=== PATIENT | female | born 1955 | race African-American/Black ===

== ENCOUNTER 2016-04-08 16:44 | Observation (INO) | payer OTHER ==
[2016-04-08 16:53] VITALS: BMI 30.9
[2016-04-08] MEDS ORDERED: SODIUM CHLORIDE 1,000 ML IV STA (17:54)
[2016-04-08] MEDS ORDERED: ASPIRIN 81 MG CHEWABLE TABLETS PO ONE (17:54)
[2016-04-08] MEDS ORDERED: ASPIRIN 81 MG CHEWABLE TABLETS ONE (18:01)
[2016-04-08 18:21] LABS: BASOPHIL 0.6 % (0-2.0); MCH 27.6 pg (25.7-33.7); MCHC 32.5 g/dl (32.0-36.0); MEAN CELL VOLUME 84.9 fl (80-96); MEAN PLT VOLUME 9.8 fl (7.5-11.1); NEUTROPHILS 55.6 % (42.8-82.8); PLATELET COUNT 266 K/MM3 (134-434); RDW 13.8 % (11.6-15.6); WHITE BLOOD COUNT 5.7 K/mm3 (4.0-10.0)
--- NOTE | 2016-04-08 18:31 | PDOC ---
History of Present Illness - General History Source: Patient Exam Limitations: No Limitations - History of Present Illness Initial Comments: 04/08/16 18:40 The patient is a 60 year old female, with a significant past medical history of HTN, diabetes, CAD s/p stent and s/p ND (3 years ago; [facility]), who presents to the emergency department with intermittent chest pain for the past several months but worsening in the past 2 days. The patient describes her chest pain as chest tightness with exertion. The patient presents to the ED for evaluation because she state that her symptoms now feel similar to her ND approximately 3 years ago. The patient denies fever, chills, cough, diaphoresis, SOB, nausea or vomiting. The patient reports that she had an echo done in May 2015: Echo Report: Ejection fraction of 60%. Soft echodensity w/ noncoronary artery cusps of the aortic valve ?artifact vs vegetation w/o aortic regurgitation. Allergies: Dextromethorphan HBr, Guaifenesin Past Surgical History: Stent, Ectopic, Right Wrist, Neck Social History: Former smoker. Denies alcohol or drug use. PCP: Dr. Carvajal Shoe Planner: Dr. [place] <Swati Rich - Last Filed: 04/08/16 18:56> - General History Source: Patient Exam Limitations: No Limitations <John Love - Last Filed: 04/08/16 19:18> - General Chief Complaint: Chest Pain Stated Complaint: CHEST PAIN Time Seen by Provider: 04/08/16 17:45 Past History <Swati Rich - Last Filed: 04/08/16 18:56> - Past Medical History Cardiac Disorders: Yes (cad) Diabetes: Yes HTN: Yes - Surgical History Abdominal Surgery: Yes (ECTOPIC) Cardiac Surgery: Yes (stent) Orthopedic Surgery: Yes (R. wrist & neck) - Immunization History Immunization Up to Date: Yes - Psycho/Social/Smoking Cessation Hx Anxiety: No Suicidal Ideation: No Smoking Status: Yes Smoking History: Former smoker Have you smoked in the past 12 months: Yes Number of Cigarettes Smoked Daily: 15 Cigars Per Day: 0 Information on smoking cessation initiated: Yes 'Breaking Loose' booklet given: 04/08/16 Hx Alcohol Use: No Drug/Substance Use Hx: No Substance Use Type: None Hx Substance Use Treatment: No <John Love - Last Filed: 04/08/16 19:18> - Past Medical History Allergies/Adverse Reactions: Allergies Allergy/AdvReac Type Severity Reaction Status Date / Time dextromethorphan HBr Allergy Intermediate Hives Verified 04/08/16 16:49 [From Robitussin-DM] guaifenesin Allergy Intermediate Hives Verified 04/08/16 16:49 [From Robitussin-DM] Home Medications: Ambulatory Orders Aspirin [Aspirin EC] 81 mg PO DAILY 04/08/16 Clopidogrel Bisulfate [Clopidogrel] 75 mg PO DAILY 04/08/16 Glyburide [Diabeta -] 5 mg PO BID 04/08/16 Labetalol HCl [Normodyne -] 200 mg PO BID 04/08/16 Levothyroxine [Synthroid -] 25 mcg PO DAILY 04/08/16 Metformin HCl [Glucophage] 1,000 mg PO BID 04/08/16 Nifedipine ER [Procardia Xl -] 90 mg PO DAILY 04/08/16 Pramipexole Dihydrochloride [Mirapex -] 0.5 mg PO BID 04/08/16 Pravastatin Sodium 10 mg PO DAILY 04/08/16 Review of Systems - Review of Systems Able to Perform ROS?: Yes Comments:: 04/08/16 18:39 GENERAL/CONSTITUTIONAL: No fever or chills. No weakness. HEAD, EYES, EARS, NOSE AND THROAT: No change in vision. No ear pain or discharge. No sore throat. CARDIOVASCULAR: +Chest pain. No shortness of breath. RESPIRATORY: No cough, wheezing, or hemoptysis. GASTROINTESTINAL: No nausea, vomiting, diarrhea or constipation. GENITOURINARY: No dysuria, frequency, or change in urination. MUSCULOSKELETAL: No joint or muscle swelling or pain. No neck or back pain. SKIN: No rash. NEUROLOGIC: No headache, vertigo, loss of consciousness, or change in strength/ sensation. ENDOCRINE: No increased thirst. No abnormal weight change. HEMATOLOGIC/LYMPHATIC: No anemia, easy bleeding, or history of blood clots. ALLERGIC/IMMUNOLOGIC: No hives or skin allergy. <Swati Rich - Last Filed: 04/08/16 18:56> *Physical Exam - Vital Signs Last Vital Signs Temp Pulse Resp BP Pulse Ox 98.4 F 86 18 159/80 100 04/08/16 16:50 04/08/16 16:50 04/08/16 16:50 04/08/16 16:50 04/08/16 16:50 - Physical Exam Comments: 04/08/16 18:32 GENERAL: Awake, alert, and fully oriented, in no acute distress. HEAD: No signs of trauma. EYES: PERRLA, EOMI, sclera anicteric, conjunctiva clear. ENT: Auricles normal inspection, hearing grossly normal, nares patent, oropharynx clear without exudates. Moist mucosa. NECK: Normal ROM, supple, no lymphadenopathy, JVD, or masses. LUNGS: Breath sounds equal, clear to auscultation bilaterally. No wheezes, and no crackles. HEART: Regular rate and rhythm, normal S1 and S2, no murmurs, rubs or gallops. ABDOMEN: Soft, nontender, normoactive bowel sounds. No guarding, no rebound. No masses. EXTREMITIES: Normal range of motion, no edema. No clubbing or cyanosis. No cords , erythema, or tenderness. NEUROLOGICAL: Cranial nerves II through XII grossly intact. Normal speech, normal gait. SKIN: Warm, dry, normal turgor, no rashes or lesions noted. <Swati Rich - Last Filed: 04/08/16 18:56> - Vital Signs Last Vital Signs Temp Pulse Resp BP Pulse Ox 98.4 F 86 18 159/80 100 04/08/16 16:50 04/08/16 16:50 04/08/16 16:50 04/08/16 16:50 04/08/16 16:50 <John Love - Last Filed: 04/08/16 19:18> Heart Score/ECG Review - History History: Moderately suspicious - Electrocardiogram EKG: Non specific repolarization disturbance - Age Age: 45-65 - Risk Factors Based on the list above the patient has:: >/=3 risk factors or Hx atherosclerotic disease - Troponin Troponin: </= normal limit - Score Heart Score - Total: 5 #1 ECG reviewed & interpreted by me at: 17:15 04/08/16 18:18 NSR 81, TWI I, avL, TWI V5-V6, no std/bryan, QTC 429 msec <John Love - Last Filed: 04/08/16 19:18> ED Treatment Course - LABORATORY CBC & Chemistry Diagram: 04/08/16 18:05 04/08/16 18:05 - Medications Given in the ED: ED Medications Discontinued Medications Generic Name Dose Route Start Last Admin Trade Name Lucía PRN Reason Stop Dose Admin Aspirin 324 mg 04/08/16 17:54 04/08/16 18:05 Asa - PO 04/08/16 17:55 324 mg ONCE ONE Administration <Swati Rich - Last Filed: 04/08/16 18:56> - LABORATORY CBC & Chemistry Diagram: 04/08/16 18:05 04/08/16 18:05 - RADIOLOGY Radiology Studies Ordered: Category Date Time Status CHEST PA & LAT [RAD] Stat Radiology 04/08/16 17:54 Ordered <John Love - Last Filed: 04/08/16 19:18> Medical Decision Making - Medical Decision Making 04/08/16 18:18 A portion of this note was documented by scribe services under my direction. I have reviewed the details of the note, within reason, and agree with the documentation with the following case summary and management plan written by me. Patient treated in the ED. Nursing notes are reviewed and incorporated into the medical decision-making. Vital signs reviewed. Peripheral IV access obtained by the nurse, laboratory studies are drawn and sent, reviewed and interpreted by myself. Vital Signs Temp Pulse Resp BP Pulse Ox 98.4 F 86 18 159/80 100 04/08/16 16:50 04/08/16 16:50 04/08/16 16:50 04/08/16 16:50 04/08/16 16:50 60-year-old female with past medical history of hypertension, diabetes, coronary disease status post stent, status post ND 3 years ago where she was worked up at [facility] presents to the emergency department for chest pain. The patient has had intermittent chest tightness on exertion for the last several months, however, the patient was noted to have worsening chest tightness with exertion with the last 2 days. She denies shortness of breath, diaphoresis or vomiting. Patient does note that the symptoms were similar to the last time she had an ND. Denies recent illnesses, fevers, chills, cough, vomiting. The last time the patient had a echo was in May 2015. Findings were noted as above in my notes. The patient will need to rule out myocardial infarction workup. We'll obtain and chest x-ray, labs. The patient's T wave inversions in the lateral leads are stable compared to prior. But given the symptoms, the patient should be admitted to the hospital for further workup. Aspirin was ordered. 04/08/16 19:16 CBC, BMP 04/08/16 18:05 04/08/16 18:05 CMP Sodium 143 mmol/L (136-145) 04/08/16 18:05 Potassium 3.4 mmol/L (3.5-5.1) L 04/08/16 18:05 Chloride 107 mmol/L (98-107) 04/08/16 18:05 Carbon Dioxide 28 mmol/L (21-32) 04/08/16 18:05 Anion Gap 8 (8-16) 04/08/16 18:05 BUN 21 mg/dL (7-18) H 04/08/16 18:05 Creatinine 1.4 mg/dL (0.55-1.02) H 04/08/16 18:05 Creat Clearance w eGFR 38.49 (>60) 04/08/16 18:05 Random Glucose 147 mg/dL (74-106) H D 04/08/16 18:05 Calcium 10.0 mg/dL (8.5-10.1) 04/08/16 18:05 Total Bilirubin 0.4 mg/dL (0.2-1.0) D 04/08/16 18:05 AST 27 U/L (15-37) 04/08/16 18:05 ALT 39 U/L (12-78) D 04/08/16 18:05 Alkaline Phosphatase 88 U/L (45-117) 04/08/16 18:05 Creatine Kinase 188 IU/L (26-192) D 04/08/16 18:05 Troponin I < 0.02 ng/ml (0.00-0.05) 04/08/16 18:05 Total Protein 7.2 g/dl (6.4-8.2) 04/08/16 18:05 Albumin 3.8 g/dl (3.4-5.0) 04/08/16 18:[address] Kenyon. She accepts the patient to telemetry observation. Case discussed in detail with admitting physician including history, physical exam and ancillary studies. Admitting physician has assumed care for the patient, will follow all pending diagnostics and will complete the evaluation and treatment. <John Love - Last Filed: 04/08/16 19:18> *DC/Admit/Observation/Transfer - Attestations Scribe Attestion: 04/08/16 18:32 Documentation prepared by Swati Rich, acting as medical education manager for John Love MD. <Swati Rich - Last Filed: 04/08/16 18:56> - Discharge Dispostion Admit: Yes <John Love - Last Filed: 04/08/16 19:18> Diagnosis at time of Disposition: Chest pain Qualifiers: Chest pain type: unspecified Qualified Code(s): R07.9 - Chest pain, unspecified - Discharge Dispostion Condition at time of disposition: Stable - Referrals Referrals: Arianna Carvajal MD [Primary Care Provider] -
[2016-04-08 18:43] LABS: INR 1.06 (0.82-1.09); PROTHROMBIN TIME (PATIENT) 11.7 SEC (9.98-11.88)
[2016-04-08 18:46] LABS: ACTIVATED PTT 34.4 SECONDS (26.9-34.4)
[2016-04-08 18:48] LABS: ALBUMIN 3.8 g/dl (3.4-5.0); ANION GAP 8 (8-16); CO2 28 mmol/L (21-32); CREATININE 1.4 mg/dL (0.55-1.02); GLUCOSE,RANDOM 147 mg/dL (74-106); SGOT/AST 27 U/L (15-37); SGPT/ALT 39 U/L (12-78)
[2016-04-08 18:51] LABS: ALK PHOS 88 U/L (45-117); BILIRUBIN,TOTAL 0.4 mg/dL (0.2-1.0); TOT PROT 7.2 g/dl (6.4-8.2); TROPONIN I < 0.02 ng/ml (0.00-0.05)
--- NOTE | 2016-04-08 19:12 | PN ---
<Laura Yuen - Last Filed: 04/08/16 20:39> Teaching Attending Note ATTENDING PHYSICIAN STATEMENT I saw and evaluated the patient. I reviewed the resident's note and discussed the case with the resident. I agree with the resident's findings and plan as documented. SUBJECTIVE: Patient is a 60 year old F with a PMHx of HTN, DM, CAD s/p MS with stent placement 3 years ago who presents with chest pain. She describes the pain as nonradiating and localized to the left side. Patient reports when she is aggravated by her significant other, she gets pain and tightness in her chest. She notes today the pain worsened from arguing with her significant other. At time of evaluation, she reports having no symptoms. She also notes associated SOB when her chest pain occurs. Patient reports that the tightness and SOB are similar to her MS symptoms from 3 years prior. Denies fevers, chills, diaphoresis, abdominal pain, nausea, vomiting, diarrhea. Social Hx: Smoker ( 15 cigarettes per day) OBJECTIVE: Last Vital Signs Temp Pulse Resp BP Pulse Ox 98.4 F 86 18 159/80 100 04/08/16 16:50 04/08/16 16:50 04/08/16 16:50 04/08/16 16:50 04/08/16 16:50 GENERAL: Well nourished female resting in bed. Awake, alert, and fully oriented , in no acute distress HEENT: Atraumatic. PERRLA, EOMI. Moist mucosa. No JVD LUNGS: No distress, speaks full sentences, clear to auscultation bilaterally HEART: Regular rate and rhythm, normal S1 and S2, no murmurs, rubs or gallops, peripheral pulses normal and equal bilaterally. ABDOMEN: Soft, nontender, normoactive bowel sounds. No guarding, no rebound. No masses EXTREMITIES: Normal inspection, Normal range of motion, no edema. No clubbing or cyanosis. NEUROLOGICAL: Cranial nerves II through XII grossly intact. Normal speech, normal gait, no focal sensorimotor deficits SKIN: Warm, Dry, normal turgor, no rashes or lesions noted. CBCD WBC 5.7 K/mm3 (4.0-10.0) 04/08/16 18:05 RBC 4.70 M/mm3 (3.60-5.2) 04/08/16 18:05 Hgb 13.0 GM/dL (10.7-15.3) 04/08/16 18:05 Hct 39.9 % (32.4-45.2) 04/08/16 18:05 MCV 84.9 fl (80-96) 04/08/16 18:05 MCHC 32.5 g/dl (32.0-36.0) 04/08/16 18:05 RDW 13.8 % (11.6-15.6) 04/08/16 18:05 Plt Count 266 K/MM3 (134-434) 04/08/16 18:05 MPV 9.8 fl (7.5-11.1) 04/08/16 18:05 CMP Sodium 143 mmol/L (136-145) 04/08/16 18:05 Potassium 3.4 mmol/L (3.5-5.1) L 04/08/16 18:05 Chloride 107 mmol/L (98-107) 04/08/16 18:05 Carbon Dioxide 28 mmol/L (21-32) 04/08/16 18:05 Anion Gap 8 (8-16) 04/08/16 18:05 BUN 21 mg/dL (7-18) H 04/08/16 18:05 Creatinine 1.4 mg/dL (0.55-1.02) H 04/08/16 18:05 Creat Clearance w eGFR 38.49 (>60) 04/08/16 18:05 Calcium 10.0 mg/dL (8.5-10.1) 04/08/16 18:05 Total Bilirubin 0.4 mg/dL (0.2-1.0) D 04/08/16 18:05 AST 27 U/L (15-37) 04/08/16 18:05 ALT 39 U/L (12-78) D 04/08/16 18:05 Alkaline Phosphatase 88 U/L (45-117) 04/08/16 18:05 Total Protein 7.2 g/dl (6.4-8.2) 04/08/16 18:05 Albumin 3.8 g/dl (3.4-5.0) 04/08/16 18:05 ECG: NSR @81 bpm with TWI in lateral leads. ASSESSMENT AND PLAN: Patient is a 60 year old F with a PMHx of HTN, DM, CAD s/p MS with stent placement who presents with atypical chest pain and dyspnea on exertion. 1.) Atypical chest pain -Trend troponins -ECG -O2 L nasal cannula -Aspirin -Heart score: 5 -CXR pending -Check lipid panel -Cardiology consult 2.) CAD s/p stent -continue with aspirin and plavix and beta bambi 3.) DM -Hold metformin -RAISS finger sticks 4.) Dyspnea on exertion most likely related to CP -Consider repeating Echo last done 06/06 Documentation prepared by Laura Yuen, acting as medical imaging director for Roxanna Kenyon M.D. <Roxanna Kenyon - Last Filed: 04/09/16 06:40> Teaching Attending Note Name of Resident: Celia Cee UTI - Symtomatic - Ucx,. Ceftriaxone Hypokalemia - Replete - Chk. Mg2+ Dvt Ppx - Low Risk - Ambulate Admit to [email or web address]
--- NOTE | 2016-04-08 19:28 | HP ---
Addendum entered and electronically signed by Celia Cee RES 04/09/16 06:10 : Patient reports vaginal itching and burning. Ceftriaxone 1gm IV ordered due to U/A revealing 3+ LE and new onset of symptoms. Addendum entered and electronically signed by Celia Cee RES 04/09/16 02:35 : Second set of Troponin negative Addendum entered and electronically signed by Celia Cee RES 04/09/16 00:27 : Patient's U/A revealed 3+ Leukocyte esterase. Patient denies any suprapubic tenderness, dysuria, frequency, urgency, pruritis, vaginal bleeding or vaginal discharge. Original Note: CHIEF COMPLAINT: Chest tightness PCP: Dr. Arianna Carvajal HISTORY OF PRESENT ILLNESS: Patient is a 60 year old female with a PMHx of HTN, DMII, HLD, CAD s/p 1 stent 3 years ago who, and Hypothyroidism who presents to the ED complaining of chest tightness that has been going on for the last few days that worsened today. Patient reports the chest tightness occurs only when she is "aggravated" by her significant other, which happens on a daily basis. Patient reports the pain is tight, nonradiating, intermittent lasting for 20-30 min and only alleviated when she is away from her significant other and in a quiet area. Patient also reports shortness of breath only when the chest tightness occurs. Otherwise, she denies fever, chill, nausea, vomiting, palpitations, diaphoresis, acute visual changes, headaches, dizziness, loss of consciousness. ER course was notable for: (1) Aspirin 324 PO (2) IV NS 1 Bolus (3) EKG and Troponins Recent Travel: None PAST MEDICAL HISTORY: HTN, DMII, HLD, CAD, Hypothyroidism PAST SURGICAL HISTORY: Stent placement, Right wrist and neck orthopedic surgery Social History: Smokin cigarettes a day for 20+ years Alcohol: Denies Drugs: Denies Family History: Denies Allergies: dextromethorphan HBr [From Robitussin-DM] Allergy (Intermediate, Verified 04/08/16 16:49) Hives guaifenesin [From Robitussin-DM] Allergy (Intermediate, Verified 04/08/16 16:49) Hives HOME MEDICATIONS: Medication Instructions Recorded Aspirin [Aspirin EC] 81 mg PO DAILY 04/08/16 Clopidogrel Bisulfate [Clopidogrel] 75 mg PO DAILY 04/08/16 Glyburide [Diabeta -] 5 mg PO BID 04/08/16 Labetalol HCl [Normodyne -] 200 mg PO BID 04/08/16 Levothyroxine [Synthroid -] 25 mcg PO DAILY 04/08/16 Metformin HCl [Glucophage] 1,000 mg PO BID 04/08/16 Nifedipine ER [Procardia Xl -] 90 mg PO DAILY 04/08/16 Pramipexole Dihydrochloride 0.5 mg PO BID 04/08/16 [Mirapex -] Pravastatin Sodium 10 mg PO DAILY 04/08/16 REVIEW OF SYSTEMS CONSTITUTIONAL: Absent: fever, chills, diaphoresis, generalized weakness, malaise, loss of appetite, weight change HEENT: Absent: rhinorrhea, nasal congestion, throat pain, throat swelling, difficulty swallowing, mouth swelling, ear pain, eye pain, visual changes CARDIOVASCULAR: Present: chest pain Absent: Syncope, palpitations, irregular heart rate, lightheadedness, peripheral edema RESPIRATORY: Present: shortness of breath Absent: cough, dyspnea with exertion, orthopnea, wheezing, stridor, hemoptysis GASTROINTESTINAL: Absent: abdominal pain, abdominal distension, nausea, vomiting, diarrhea, constipation, melena, hematochezia GENITOURINARY: Absent: dysuria, frequency, urgency, hesitancy, hematuria, flank pain, genital pain MUSCULOSKELETAL: Absent: myalgia, arthralgia, joint swelling, back pain, neck pain SKIN: Absent: rash, itching, pallor HEMATOLOGIC/IMMUNOLOGIC: Absent: easy bleeding, easy bruising, lymphadenopathy, frequent infections ENDOCRINE: Absent: unexplained weight gain, unexplained weight loss, heat intolerance, cold intolerance NEUROLOGIC: Absent: headache, focal weakness or paresthesias, dizziness, unsteady gait, seizure, mental status changes, bladder or bowel incontinence PSYCHIATRIC: Absent: anxiety, depression, suicidal or homicidal ideation, hallucinations. PHYSICAL EXAMINATION Vital Signs - 24 hr 04/08/16 16:50 Temperature 98.4 F Pulse Rate 86 Respiratory 18 Rate Blood Pressure 159/80 O2 Sat by Pulse 100 Oximetry (%) GENERAL: Awake, alert, and fully oriented, in no acute distress. HEAD: Normal with no signs of trauma. EYES: Pupils equal, round and reactive to light, extraocular movements intact, sclera anicteric, conjunctiva clear. No lid lag. EARS, NOSE, THROAT: Ears normal, nares patent, oropharynx clear without exudates. Moist mucous membranes. NECK: Normal range of motion, supple without lymphadenopathy, JVD, or masses. LUNGS: Breath sounds equal, clear to auscultation bilaterally. No wheezes, and no crackles. No accessory muscle use. HEART: Regular rate and rhythm, normal S1 and S2 without murmur, rub or gallop. ABDOMEN: Soft, nontender, not distended, normoactive bowel sounds, no guarding, no rebound, no masses. No hepatomegaly or splenomegaly. MUSCULOSKELETAL: Normal range of motion at all joints. No bony deformities or tenderness. No CVA tenderness. UPPER EXTREMITIES: No peripheral edema. LOWER EXTREMITIES: No calf tenderness. No peripheral edema. NEUROLOGICAL: Normal speech. PSYCHIATRIC: Cooperative. Good eye contact. Appropriate mood and affect. SKIN: Warm, dry, normal turgor, no rashes or lesions noted. Laboratory Results - last 24 hr 04/08/16 04/08/16 04/08/16 18:05 18:05 18:05 WBC 5.7 RBC 4.70 Hgb 13.0 Hct 39.9 MCV 84.9 MCHC 32.5 RDW 13.8 Plt Count 266 MPV 9.8 Neutrophils % 55.6 Lymphocytes % 31.9 Monocytes % 7.9 Eosinophils % 4.0 Basophils % 0.6 INR 1.06 PTT (Actin FS) 34.4 Sodium 143 Potassium 3.4 L Chloride 107 Carbon Dioxide 28 Anion Gap 8 BUN 21 H Creatinine 1.4 H Creat Clearance w eGFR 38.49 Random Glucose 147 H D Calcium 10.0 Total Bilirubin 0.4 D AST 27 ALT 39 D Alkaline Phosphatase 88 Creatine Kinase 188 D CK-MB (CK-2) 1.746 Troponin I < 0.02 Total Protein 7.2 Albumin 3.8 Chest X-Ray: No acute pathology EKG: NSR @81 BPM with t-wave inversions in lateral leads ASSESSMENT/PLAN: Patient is a 60 year old female with a PMHx of HTN, DMII, HLD, CAD s/p 1 stent, and hypothyroidism who presents to the ED complaining of chest tightness for the last few days that worsened today. Patient states the chest tightness only occurs when she is arguing with her significant other or is under stress. Patient admitted to telemetry for further monitoring and management. Atypical Chest Pain -Heart Score: 5 -Labs and vitals wnl with resolution of chest pain -First set of troponins negative -EKG revealed t-wave inversion in lateral leads, which is unchanged from previous -Cardiology consult placed -Echo ordered -Lipid panel ordered -Continue to trend troponin with next repeat at midnight -Continue daily ASA and Plavix daily -Continue 02 NC CAD s/p stent -Continue Aspirin 81mg daily -Continue Plavix 75mg daily -Continue Labetalol HCl 200mg BID daily HTN -Continue Nifedipine ER 90mg daily -Continue Labetalol HCl 200mg BID daily -Continue to monitor BP DM II -Hold home medications -Insulin sliding scale -BGM Hypothyroidism -Continue Synthroid 25mcg F/E/N -On no fluids -Electrolytes wnl -Sodium/diabetes controlled diet Prophylaxis -SCD's for DVT. Moderate risk -No GI prophylaxis Disposition -Full code -Patient awaiting bed in Telemetry for further management. ECHO pending in the morning and awaiting to be seen by photocopying machine operator. Visit type - Emergency Visit Emergency Visit: Yes ED Registration Date: 04/08/16 Care time: The patient presented to the Emergency Department on the above date and was hospitalized for further evaluation of their emergent condition. - New Patient This patient is new to me today: Yes Date on this admission: 04/09/16 - Critical Care Critical Care patient: No
[2016-04-08 19:50] LABS: URINE APPEARANCE SLCLOUDY; URINE BILIRUBIN NEGATIVE (NEGATIVE); URINE BLOOD NEGATIVE (NEGATIVE); URINE COLOR YELLOW; URINE GLUCOSE (UA) NEGATIVE (NEGATIVE); URINE KETONE NEGATIVE (NEGATIVE); URINE NITRITE NEGATIVE (NEGATIVE); URINE PROTEIN NEGATIVE (NEGATIVE); URINE UROBILINOGEN 2.0 E.U/dl E.U./dl (0.2-1.0)
[2016-04-08 20:00] LABS: URINE LEUK ESTERASE 3+ (NEGATIVE)
[2016-04-08 20:01] LABS: URINE BACTERIA RARE /hpf (NONE SEEN); URINE MUCUS RARE; URINE RBC 14 /hpf (0-3); URINE WBC 81 /hpf (3-5)
[2016-04-08] MEDS ORDERED: LABETALOL HCL 100 MG TABLET (FP) ONE (23:20)
[2016-04-08] MEDS ORDERED: INSULIN REGULAR HUMAN 100 UNITS/ML *VIAL ONE (23:23)
[2016-04-08] MEDS: PRAMIPEXOLE DIHYDROCHLORIDE 0.5 MG TABLET PO SCH (23:32)
[2016-04-08] MEDS: LABETALOL HCL 200 MG TABLET (FP) PO SCH (23:32)
[2016-04-08] MEDS: INSULIN SLIDING SCALE (NOVOLOG) 1 VIAL SQ SCH (23:33)
[2016-04-09] MEDS ORDERED: CEFTRIAXONE 50 ML IVPB ONE (06:10)
[2016-04-09] MEDS ORDERED: LEVOTHYROXINE NA 25 MCG TABLET (FP) PO SCH (07:00)
[2016-04-09] MEDS ORDERED: LEVOTHYROXINE NA 25 MCG TABLET (FP) ONE (07:33)
[2016-04-09] MEDS ORDERED: CEFTRIAXONE 50 ML ONE (07:33)
[2016-04-09] MEDS: INSULIN SLIDING SCALE (NOVOLOG) 1 VIAL SQ SCH ×3 (07:37→17:42)
[2016-04-09 08:07] LABS: ALBUMIN 3.4 g/dl (3.4-5.0); ANION GAP 8 (8-16); BILIRUBIN,TOTAL 0.4 mg/dL (0.2-1.0); CALCIUM 8.6 mg/dL (8.5-10.1); CO2 28 mmol/L (21-32); GLUCOSE,RANDOM 99 mg/dL (74-106); SGOT/AST 22 U/L (15-37); SGPT/ALT 34 U/L (12-78); TOT PROT 6.4 g/dl (6.4-8.2)
[2016-04-09 08:09] LABS: ALK PHOS 76 U/L (45-117); TROPONIN I < 0.02 ng/ml (0.00-0.05)
[2016-04-09 08:11] LABS: CHOLESTEROL 140 mg/dL (50-200); LDL CHOLESTEROL (ONLY SJRH) 78 mg/dL (5-100)
--- NOTE | 2016-04-09 08:52 | PN ---
Progress Note (short form) - Note Progress Note: Cardiology Consult Dictated 60F DM, CAD s/p NE w/ primary PCI 2013, some degree of residual CAD, HTN presents to ER with several weeks of substernal chest pressure during emotional distress. ECG w/ non-specific T wave changes that are unchanged, 2 sets cardiac enzymes negative. REC: 1. Tele 2. Echo for EF assessment 3. ASA 4. Obtain 3rd enzyme 5. Will discuss anatomy w/ Dr. Frenandez (interventional cardiology at [place]). If the residual CAD she describes was significant, may transfer for cath. If the residual dz was mild and non-obstructive, then stress test may be more appropriate. Further reccs pending review of prior angiogram.
[2016-04-09 09:10] LABS: BASOPHIL 0.4 % (0-2.0); EOSINOPHIL 4.6 % (0-4.5); MCH 28.3 pg (25.7-33.7); MCHC 33.2 g/dl (32.0-36.0); MEAN CELL VOLUME 85.2 fl (80-96); MEAN PLT VOLUME 9.9 fl (7.5-11.1); NEUTROPHILS 44.2 % (42.8-82.8); PLATELET COUNT 239 K/MM3 (134-434); RDW 13.8 % (11.6-15.6); WHITE BLOOD COUNT 5.2 K/mm3 (4.0-10.0)
--- NOTE | 2016-04-09 09:59 | CONS ---
DATE OF CONSULTATION: 04/09/2016 REQUESTING PHYSICIAN: Gino Mojica MD, for chest pain. CHIEF COMPLAINT: Chest pain. HISTORY OF PRESENT ILLNESS: This 60-year-old female with past medical history of diabetes, hypertension, coronary artery disease status post LA with primary PCI in 2013, distal RCA stented. Patient had mild disease elsewhere in the mid and distal LAD. She now presents to the emergency room with 1-2 weeks of substernal chest pressure during times of emotional distress. No associated nausea, vomiting, or diaphoresis. No exertional chest pain. Her EKG shows T-wave inversions in V5 and V6, which when compared to previous EKGs, are stable. She denies fevers or chills. REVIEW OF SYSTEMS: Is otherwise comprehensively negative. PAST MEDICAL HISTORY: Is as above and also includes hyperlipidemia and restless leg syndrome. HOME MEDICATIONS: Include Procardia XL 90 mg daily, Synthroid 25 mcg daily for hypothyroidism, labetalol 200 mg p.o. b.i.d., glyburide 5 mg p.o. b.i.d., aspirin 81 mg daily, Pravachol 10 mg daily, pramipexole 0.5 mg b.i.d., metformin 1000 mg b.i.d., and Plavix 75 mg daily, FAMILY HISTORY: Father had stroke. Otherwise, no early sudden cardiac or early coronary disease. SOCIAL HISTORY: Patient is a former smoker. She denies alcohol or illicit drugs. PHYSICAL EXAMINATION: Vital signs: Afebrile, temperature 98.6, pulse 72 and regular, blood pressure 138/77 (146/82 on presentation), O2 saturation 100% on room air, anicteric. Neck: No bruits. No JVD. Heart: S1, 2, regular rate and rhythm, no murmurs. Chest: Clear bilaterally. Abdomen: Soft, nontender. Extremities: Warm, no edema. DIAGNOSTIC DATA: A 12-lead EKG showed normal sinus rhythm at 81 beats per minute with T-wave inversions in V4, V5, and V6, which was unchanged. Chest x-ray showed no acute pathology. LABORATORIES: White count 5.7, hematocrit 39, platelets 266. INR 1.06. Sodium 143, potassium 3.4, BUN 21, creatinine 1.4. CK and troponin are negative x2 sets, the 3rd enzyme is currently pending. Echocardiogram is pending. LDL cholesterol is 78. Prior angiogram from [address]andez at [facility]. Patient had a distal RCA stenosis with stent with excellent result. Mild disease in the mid and distal LAD. T-wave changes in V5 and V6 were present at that time as well. IMPRESSION: This is a 60-year-old female with a history of coronary disease, myocardial infarction in 2014, percutaneous coronary intervention of the distal right coronary artery with mild disease elsewhere, hypertension, and hyperlipidemia, who now presents with several weeks of substernal chest pressure during times of emotional distress with 2 negative cardiac enzymes and unchanged electrocardiogram. PLAN: 1. Telemetry. 2. Obtain 3rd cardiac enzyme. 3. Echocardiogram for EF assessment. 4. Based on review of previous angiogram, unchanged EKG, it seems that a stress test would be most appropriate to guide further therapy. After 3rd enzyme, will plan for nuclear stress test here and further decisions based on result of stress test. Thank you for the consultation. DAMASO PEDERSON M.D. [id number]
[2016-04-09] MEDS ORDERED: NIFEdipine E.R. 90 MG TABLET (FP) PO SCH (10:00)
[2016-04-09] MEDS ORDERED: ASPIRIN COATED 81 MG TABLET.EC PO SCH (10:00)
[2016-04-09] MEDS ORDERED: CLOPIDOGREL BISULFATE 75 MG TABLET (FP) PO SCH (10:00)
[2016-04-09] MEDS ORDERED: PATIENT'S OWN MEDICATION (NON-FORMULARY) (Pravastatin Sodium [Pravastatin Sodium] 10 MG) PO SCH (10:00)
[2016-04-09] MEDS ORDERED: WATER IVPB ONE (10:15)
[2016-04-09] MEDS ORDERED: DEXTROSE 5% IVPB ONE (10:15)
[2016-04-09] MEDS ORDERED: DIPYRIDAMOLE STRESS TEST IVPB ONE (10:15)
[2016-04-09 13:01] VITALS: TEMP 98.1
[2016-04-09] MEDS: PRAMIPEXOLE DIHYDROCHLORIDE 0.5 MG TABLET PO SCH (13:15)
[2016-04-09] MEDS: LABETALOL HCL 200 MG TABLET (FP) PO SCH (13:18)
--- NOTE | 2016-04-09 15:02 | PN ---
Physical Exam: SUBJECTIVE: Patient seen and examined. She is sitting comfortable in her bed. Denies chest pain, palpitations, dizziness. She states that when her is not present she doesn't have any complaints. OBJECTIVE: Vital Signs Period Temp Pulse Resp BP Sys/Oliver Pulse Ox Last 24 Hr 98.1 F-98.6 F 65-86 18-20 138-179/64-90 97-100 GENERAL: The patient is awake, alert, and fully oriented, in no acute distress. HEAD: Normal with no signs of trauma. EYES: PERRL, extraocular movements intact, sclera anicteric, conjunctiva clear. No ptosis. ENT: Ears normal, nares patent, oropharynx clear without exudates, moist mucous membranes. NECK: Trachea midline, full range of motion, supple. LUNGS: Breath sounds equal, clear to auscultation bilaterally, no wheezes, no crackles, no accessory muscle use. HEART: Regular rate and rhythm, S1, S2 without murmur, rub or gallop. ABDOMEN: Obese, soft, nontender, nondistended, normoactive bowel sounds, no guarding, no rebound, no hepatosplenomegaly, no masses. EXTREMITIES: 2+ pulses, warm, well-perfused, no edema. NEUROLOGICAL: Cranial nerves II through XII grossly intact. Normal speech, gait not observed. PSYCH: Normal mood, normal affect. SKIN: Warm, dry, normal turgor, no rashes or lesions noted Laboratory Results - last 24 hr 04/08/16 04/09/16 04/09/16 23:17 00:30 07:00 WBC 5.2 RBC 4.34 Hgb 12.3 Hct 37.0 MCV 85.2 MCHC 33.2 RDW 13.8 Plt Count 239 MPV 9.9 Neutrophils % 44.2 D Lymphocytes % 42.1 H D Monocytes % 8.7 Eosinophils % 4.6 H Basophils % 0.4 Sodium Potassium Chloride Carbon Dioxide Anion Gap BUN Creatinine Creat Clearance w eGFR POC Glucometer [phone] Random Glucose Calcium Total Bilirubin AST ALT Alkaline Phosphatase Creatine Kinase Troponin I < 0.02 Total Protein Albumin Triglycerides Cholesterol Total LDL Cholesterol HDL Cholesterol 04/09/16 04/09/16 04/09/16 07:00 07:00 07:36 WBC RBC Hgb Hct MCV MCHC RDW Plt Count MPV Neutrophils % Lymphocytes % Monocytes % Eosinophils % Basophils % Sodium 144 Potassium 3.6 Chloride 108 H Carbon Dioxide 28 Anion Gap 8 BUN 13 D Creatinine 1.0 D Creat Clearance w eGFR 56.75 POC Glucometer [phone] Random Glucose 99 D Calcium 8.6 Total Bilirubin 0.4 AST 22 ALT 34 Alkaline Phosphatase 76 Creatine Kinase 120 Troponin I < 0.02 Total Protein 6.4 Albumin 3.4 Triglycerides 122 Cholesterol 140 Total LDL Cholesterol 78 HDL Cholesterol 47 04/09/16 12:36 WBC RBC Hgb Hct MCV MCHC RDW Plt Count MPV Neutrophils % Lymphocytes % Monocytes % Eosinophils % Basophils % Sodium Potassium Chloride Carbon Dioxide Anion Gap BUN Creatinine Creat Clearance w eGFR POC Glucometer [phone] Random Glucose Calcium Total Bilirubin AST ALT Alkaline Phosphatase Creatine Kinase Troponin I Total Protein Albumin Triglycerides Cholesterol Total LDL Cholesterol HDL Cholesterol Active Medications Generic Name Dose Route Start Last Admin Trade Name Freq PRN Reason Stop Dose Admin Aspirin 81 mg 04/09/16 10:00 04/09/16 13:18 Ecotrin - PO 81 mg DAILY JERO Administration Clopidogrel Bisulfate 75 mg 04/09/16 10:00 04/09/16 13:17 Plavix - PO 75 mg DAILY JERO Administration Insulin Aspart 1 vial 04/08/16 22:00 04/09/16 12:38 Novolog Vial Sliding Scale - SQ Not Given ACHS [facility] Protocol Labetalol HCl 200 mg 04/08/16 22:00 04/09/16 13:18 Normodyne - PO 200 mg BID JERO Administration Levothyroxine Sodium 25 mcg 04/09/16 07:00 04/09/16 07:40 Synthroid - PO 25 mcg DAILY@0700 JERO Administration Nifedipine 90 mg 04/09/16 10:00 04/09/16 13:17 Procardia Xl - PO 90 mg DAILY JERO Administration Non-Formulary Medication 10 mg 04/09/16 10:00 Pravastatin Sodium [Pravastatin Sodium] PO DAILY [facility] Pramipexole Dihydrochloride 0.5 mg 04/08/16 22:00 04/09/16 13:15 Mirapex - PO 0.5 mg BID JERO Administration Chest X-Ray: No acute pathology EKG: NSR @81 BPM with t-wave inversions in lateral leads ASSESSMENT/PLAN: Patient is a 60 year old female with a PMHx of HTN, DMII, HLD, CAD s/p 1 stent, and hypothyroidism who presents to the ED complaining of chest tightness for the last few days that worsened today. The tightness is localized to left side of her chest, no radiation, aggravated by the presence of her . Patient admitted to telemetry for further monitoring and management. Atypical Chest Pain -Heart Score: 5 -3 sets of troponins negative -EKG revealed t-wave inversion in lateral leads, which is unchanged from previous EKG -Cardiology consulted -Echo done -Sistamibi test ordered -Lipid panel ordered -Continue daily ASA and Plavix daily -Continue 02 NC CAD s/p stent -Continue Aspirin 81mg daily -Continue Plavix 75mg daily -Continue Labetalol HCl 200mg BID daily HTN -Continue Nifedipine ER 90mg daily -Continue Labetalol HCl 200mg BID daily -Continue to monitor BP DM II -Hold home medications;Glyburide and Metformin -Insulin sliding scale -BGM Hypothyroidism -Continue Synthroid 25mcg F/E/N No/No changesSodium/diabetes controlled diet Prophylaxis -SCD's for DVT. Moderate risk -No GI prophylaxis Disposition: telemetry Problem List - Problems (1) Chest pain Code(s): R07.9 - CHEST PAIN, UNSPECIFIED (2) Diabetes Code(s): E11.9 - TYPE 2 DIABETES MELLITUS WITHOUT COMPLICATIONS (3) Hypertension Code(s): I10 - ESSENTIAL (PRIMARY) HYPERTENSION Visit type - Emergency Visit Emergency Visit: Yes ED Registration Date: 04/08/16 Care time: The patient presented to the Emergency Department on the above date and was hospitalized for further evaluation of their emergent condition. - New Patient This patient is new to me today: Yes Date on this admission: 04/18/16 - Critical Care Critical Care patient: No - Discharge Referral Referred to [facility] Med P.C.: No
--- NOTE | 2016-04-09 16:24 | EKG ---
Test Reason : Blood Pressure : / mmHG Vent. Rate : 081 BPM Atrial Rate : 081 BPM P-R Int : 160 ms QRS Dur : 100 ms QT Int : 370 ms P-R-T Axes : 037 005 -69 degrees QTc Int : 429 ms NORMAL SINUS RHYTHM T WAVE ABNORMALITY, CONSIDER LATERAL ISCHEMIA ABNORMAL ECG WHEN COMPARED WITH ECG OF 06-MAY-2013 12:56, NO SIGNIFICANT CHANGE WAS FOUND Confirmed by TEJAS YOUNG MD ([id number]) on 04/09/2016 4:24:13 PM Referred By: Confirmed By:TEJAS YOUNG MD
[2016-04-09 17:21] VITALS: BP 142/77; PULSE 77
--- NOTE | 2016-04-09 17:48 | PN ---
Teaching Attending Note Name of Resident: Becca Monzon ATTENDING PHYSICIAN STATEMENT I saw and evaluated the patient. I reviewed the resident's note and discussed the case with the resident. I agree with the resident's findings and plan as documented. SUBJECTIVE: no fever or chills, no CP . NO SOB OBJECTIVE: NAD CV : RRR Lungs : CTAb Ext : no edema ASSESSMENT AND PLAN: 60 y/o lady with h/o CAD s/p stenting 2 yrs ago , who resented with CP in situations when she gets aggravated. VS were stable , EKG with no acute ischemic changes . seen by CArd and had Neg stress test. Echo was done , there is septal enlargement at the base . these result will be d/w Dr. Jimenes , and if OK will dc home she complained of dysuria with pyuria on UA so she was started on Ceftriaxone. unfortunately urine cx was not sent prior. will send one now and dc on levaquin .
--- NOTE | 2016-04-09 17:51 | DS ---
Physical Exam: SUBJECTIVE: Patient seen and examined. She denies chest pain, palpitations, SOB , dizziness, LOC. OBJECTIVE: Vital Signs Period Temp Pulse Resp BP Sys/Oliver Pulse Ox Last 24 Hr 98.1 F-98.6 F 65-86 18-20 138-179/64-90 97-100 PHYSICAL EXAM GENERAL: The patient is awake, alert, and fully oriented, in no acute distress. HEAD: Normal with no signs of trauma. EYES: PERRL, extraocular movements intact, sclera anicteric, conjunctiva clear. ENT: Ears normal, nares patent, oropharynx clear without exudates, moist mucous membranes. NECK: Trachea midline, full range of motion, supple. LUNGS: Breath sounds equal, clear to auscultation bilaterally, no wheezes, no crackles, no accessory muscle use. HEART: Regular rate and rhythm, S1, S2 without murmur, rub or gallop. ABDOMEN: Soft, nontender, nondistended, normoactive bowel sounds, no guarding, no rebound, no hepatosplenomegaly, no masses. EXTREMITIES: 2+ pulses, warm, well-perfused, no edema. NEUROLOGICAL: Cranial nerves II through XII grossly intact. Normal speech, gait not observed. PSYCH: Normal mood, normal affect. SKIN: Warm, dry, normal turgor, no rashes or lesions noted. LABS Laboratory Results - last 24 hr 04/08/16 04/09/16 04/09/16 23:17 00:30 07:00 WBC 5.2 RBC 4.34 Hgb 12.3 Hct 37.0 MCV 85.2 MCHC 33.2 RDW 13.8 Plt Count 239 MPV 9.9 Neutrophils % 44.2 D Lymphocytes % 42.1 H D Monocytes % 8.7 Eosinophils % 4.6 H Basophils % 0.4 Sodium Potassium Chloride Carbon Dioxide Anion Gap BUN Creatinine Creat Clearance w eGFR POC Glucometer [phone] Random Glucose Calcium Total Bilirubin AST ALT Alkaline Phosphatase Creatine Kinase Troponin I < 0.02 Total Protein Albumin Triglycerides Cholesterol Total LDL Cholesterol HDL Cholesterol 04/09/16 04/09/16 04/09/16 07:00 07:00 07:36 WBC RBC Hgb Hct MCV MCHC RDW Plt Count MPV Neutrophils % Lymphocytes % Monocytes % Eosinophils % Basophils % Sodium 144 Potassium 3.6 Chloride 108 H Carbon Dioxide 28 Anion Gap 8 BUN 13 D Creatinine 1.0 D Creat Clearance w eGFR 56.75 POC Glucometer [phone] Random Glucose 99 D Calcium 8.6 Total Bilirubin 0.4 AST 22 ALT 34 Alkaline Phosphatase 76 Creatine Kinase 120 Troponin I < 0.02 Total Protein 6.4 Albumin 3.4 Triglycerides 122 Cholesterol 140 Total LDL Cholesterol 78 HDL Cholesterol 47 04/09/16 12:36 WBC RBC Hgb Hct MCV MCHC RDW Plt Count MPV Neutrophils % Lymphocytes % Monocytes % Eosinophils % Basophils % Sodium Potassium Chloride Carbon Dioxide Anion Gap BUN Creatinine Creat Clearance w eGFR POC Glucometer [phone] Random Glucose Calcium Total Bilirubin AST ALT Alkaline Phosphatase Creatine Kinase Troponin I Total Protein Albumin Triglycerides Cholesterol Total LDL Cholesterol HDL Cholesterol HOSPITAL COURSE: Date of Admission:04/08/16 Date of Discharge: 04/09/16 Minutes to complete discharge: 35 Discharge Summary Reason For Visit: CHEST PAIN Hospital Course: Patient is a 60 year old female with a PMHx of HTN, DMII, HLD, CAD s/p 1 stent 3 years ago who, and Hypothyroidism who presents to the ED complaining of chest tightness that has been going on for the last few days that worsened today. Patient reports the chest tightness occurs only when she is "aggravated" by her significant other, which happens on a daily basis. Patient reports the pain is tight, nonradiating, intermittent lasting for 20-30 min and only alleviated when she is away from her significant other and in a quiet area. Patient also reports shortness of breath only when the chest tightness occurs. Otherwise, she denies fever, chill, nausea, vomiting, palpitations, diaphoresis, acute visual changes, headaches, dizziness, loss of consciousness. Hospital course: The pt was diagnosed with chest pain. We ordered Aspirin, continued Plavix, ordered ECHO, stress test, called cardiology consultation, lipid panel. The stress test result was normal. ECHO result shows thickening of the septum at bases, official reading not done yet. The pt was also diagnosed with UTI. We ordered urine culture, started the pt on Ceftriaxone IV and discharged home on Levaquin for 6 more days.We recommend to follow up with a naturopath and PCP in a week. Condition: Improved - Instructions Diet, Activity, Other Instructions: It is recommended that you will take Levaquin for 6 more days once a day. Take your medication regularly. Follow up with your naturopath in a week. Follow up with PCP in a week. If you have shortness of breath, chest pain, palpitations, dizziness come to emergency room. Referrals: Arianna Carvajal MD [Primary Care Provider] - Disposition: HOME - Home Medications Comprehensive Discharge Medication List: Ambulatory Orders Aspirin [Aspirin EC] 81 mg PO DAILY 04/08/16 Clopidogrel Bisulfate [Clopidogrel] 75 mg PO DAILY 04/08/16 Glyburide [Micronase -] 5 mg PO BID 04/08/16 Labetalol HCl [Normodyne -] 200 mg PO BID 04/08/16 Levothyroxine [Synthroid -] 25 mcg PO DAILY 04/08/16 Metformin HCl [Glucophage] 1,000 mg PO BID 04/08/16 Nifedipine ER [Procardia XL -] 90 mg PO DAILY 04/08/16 Pramipexole Dihydrochloride [Mirapex -] 0.5 mg PO BID 04/08/16 Pravastatin Sodium 10 mg PO DAILY 04/08/16 Levofloxacin [Levaquin] 750 mg PO DAILY #6 tab 04/09/16 Problem List - Problems (1) Chest pain Code(s): R07.9 - CHEST PAIN, UNSPECIFIED (2) Diabetes Code(s): E11.9 - TYPE 2 DIABETES MELLITUS WITHOUT COMPLICATIONS (3) Hypertension Code(s): I10 - ESSENTIAL (PRIMARY) HYPERTENSION This patient is new to me today: Yes Date on this admission: 04/09/16 Emergency Visit: Yes ED Registration Date: 04/08/16 Care time: The patient presented to the Emergency Department on the above date and was hospitalized for further evaluation of their emergent condition. Critical Care patient: No - Discharge Referral Referred to [facility] Med P.C.: No
== END 2016-04-09 18:40 | disposition home or self-care (01) ==
LOC: JER 16:44 → JERBED 19:44
PROVIDERS: ADMIT Internal Medicine; ATTEND Internal Medicine
DX: R07.89 Other chest pain (principal); I25.10 Atherosclerotic heart disease of native coronary artery without angina pectoris; Z98.61 Coronary angioplasty status; I10 Essential (primary) hypertension; E11.9 Type 2 diabetes mellitus without complications; E03.9 Hypothyroidism, unspecified; Z87.891 Personal history of nicotine dependence; E78.5 Hyperlipidemia, unspecified; I25.2 Old myocardial infarction; E87.6 Hypokalemia
CPT/HCPCS: 36415; 71020-TC; 78452-TC; 80053; 80061; 81003; 81015; 82550; 82553; 83721; 84484; 85025; 85610; 85730; 87086; 93005; 93010; 93017; 93306-TC; 99285-25; A9502; G0378

== ENCOUNTER 2016-08-26 00:09 | Inpatient (IN) | payer OTHER ==
[2016-08-26 00:39] LABS: BASOPHIL 0.7 % (0-2.0); MCH 27.6 pg (25.7-33.7); MCHC 32.7 g/dl (32.0-36.0); MEAN CELL VOLUME 84.3 fl (80-96); NEUTROPHILS 61.8 % (42.8-82.8); PLATELET COUNT 277 K/MM3 (134-434); RDW 13.3 % (11.6-15.6)
--- NOTE | 2016-08-26 00:52 | PDOC ---
History of Present Illness - History of Present Illness Initial Comments: 08/26/16 00:53 Patient is a 61 year old female with significant medical hx of DM, HTN, CAD s/p stent, and hypothyroidism who is presenting to the ED with hyperglycemia for the past month. The patient states that she checked her sugar today which read high but did not give her a numerical reading. She complains of some generalized weakness and increased urinary frequency. The patient notes she has an appointment with her PCP next week. Patient denies any other symptoms including nausea, vomiting, diarrhea, abdominal pain, fever, or chills. PCP: Arianna Carvajal MD Nutrition Coordinator: Sandra Nichols DO Surgical Hx: ectopic, cardiac stent, right wrist surgery, cervical maxi placement Allergies: dextromethorphan HBr, guaifenesin <Jenna Snider - Last Filed: 08/26/16 00:59> <Keely Bhatti - Last Filed: 08/26/16 04:33> <Elvie Kevin - Last Filed: 08/27/16 21:28> - General Chief Complaint: Blood Sugar Problem Stated Complaint: HIGH SUGAR LEVEL Past History <Jenna Snider - Last Filed: 08/26/16 00:59> <Keely Bhatti - Last Filed: 08/26/16 04:33> - Past Medical History Cardiac Disorders: Yes (CAD) Diabetes: Yes HTN: Yes Hypercholesterolemia: Yes - Surgical History Abdominal Surgery: Yes (ECTOPIC) Cardiac Surgery: Yes (stent) Orthopedic Surgery: Yes (R. wrist & neck) - Immunization History Immunization Up to Date: Yes - Psycho/Social/Smoking Cessation Hx Anxiety: No Suicidal Ideation: No Smoking Status: Yes Smoking History: Former smoker Have you smoked in the past 12 months: Yes Number of Cigarettes Smoked Daily: 10 Cigars Per Day: 0 Information on smoking cessation initiated: No 'Breaking Loose' booklet given: 04/08/16 Hx Alcohol Use: No Drug/Substance Use Hx: No Substance Use Type: None Hx Substance Use Treatment: No <Elvie Kevin - Last Filed: 08/27/16 21:28> - Past Medical History Allergies/Adverse Reactions: Allergies Allergy/AdvReac Type Severity Reaction Status Date / Time dextromethorphan HBr Allergy Intermediate Hives Verified 08/26/16 00:22 [From Robitussin-DM] guaifenesin Allergy Intermediate Hives Verified 08/26/16 00:22 [From Robitussin-DM] Home Medications: Ambulatory Orders Aspirin [Aspirin EC] 81 mg PO DAILY 04/08/16 Clopidogrel Bisulfate [Clopidogrel] 75 mg PO DAILY 04/08/16 Labetalol HCl [Normodyne -] 200 mg PO BID 04/08/16 Levothyroxine [Synthroid -] 25 mcg PO DAILY 04/08/16 Nifedipine ER [Procardia XL -] 90 mg PO DAILY 04/08/16 Pramipexole Dihydrochloride [Mirapex -] 0.5 mg PO BID 04/08/16 Pravastatin Sodium 10 mg PO DAILY 04/08/16 Cephalexin [Keflex] 500 mg PO BID #10 capsule 08/27/16 Fluconazole 150 mg PO ONCE #1 tablet 08/27/16 Insulin (Levemir) [Levemir Flexpen -] 15 units SQ HS #1 pen 08/27/16 Insulin Aspart [Novolog Flexpen] 100 unit SQ TIDCM #1 insuln.pen 08/27/16 Miscellaneous Medical Supply [Glucometer Device] 1 each .ROUTE ASDIR #1 kit 09/07 Miscellaneous Medical Supply [Glucometer Test Strips #100] 1 each .ROUTE ASDIR # 1 box 08/27/16 Review of Systems - Review of Systems Comments:: 08/26/16 00:54 CONSTITUTIONAL: Present: generalized weakness Absent: fever, no chills, no fatigue EYES: Absent: visual changes ENT: Absent: ear pain, no sore throat CARDIOVASCULAR: Absent: chest pain, no palpitations RESPIRATORY: Absent: cough, no SOB GI: Absent: abdominal pain, no nausea, no vomiting, no constipation, no diarrhea GENITOURINARY: Present: frequency Absent: dysuria, no hematuria MUSKULOSKELETAL: Absent: back pain, no arthralgia, no myalgia SKIN: Absent: rash NEURO: Absent: headache <Tylor,Jenna - Last Filed: 08/26/16 00:59> *Physical Exam - Vital Signs Last Vital Signs Temp Pulse Resp BP Pulse Ox 98.0 F 98 H 20 154/80 97 08/26/16 00:23 08/26/16 00:23 08/26/16 00:23 08/26/16 00:23 08/26/16 00:23 - Physical Exam Comments: 08/26/16 00:55 GENERAL: Well-appearing, well-nourished. No apparent distress. HEENT: Normocephalic, atraumatic. PERRL, EOM intact. CARDIOVASCULAR: Normal S1, S2. Regular rate and rhythm. PULMONARY: Clear to auscultation bilaterally. ABDOMEN: Soft, non-distended, non-tender. EXTREMITIES: Normal ROM in all four extremities. No gross deformities. SKIN: Warm, dry. No rash NEUROLOGICAL: No focal neurological deficits. <Jenna Snider - Last Filed: 08/26/16 00:59> - Vital Signs Last Vital Signs Temp Pulse Resp BP Pulse Ox 97.9 F 84 16 153/87 95 08/26/16 01:24 08/26/16 01:24 08/26/16 01:24 08/26/16 01:24 08/26/16 01:24 <Keely Bhatti - Last Filed: 08/26/16 04:33> - Vital Signs Last Vital Signs Temp Pulse Resp BP Pulse Ox 98.0 F 98 H 20 154/80 97 08/26/16 00:23 08/26/16 00:23 08/26/16 00:23 08/26/16 00:23 08/26/16 00:23 <Elvie Kevin - Last Filed: 08/27/16 21:28> ED Treatment Course - LABORATORY CBC & Chemistry Diagram: 08/26/16 00:25 08/26/16 00:25 - ADDITIONAL ORDERS Additional order review: 08/26/16 00:25 RBC 4.64 MCV 84.3 MCHC 32.7 RDW 13.3 MPV 10.0 Neutrophils % 61.8 D Lymphocytes % 27.5 D Monocytes % 8.0 Eosinophils % 2.0 Basophils % 0.7 <Jenna Snider - Last Filed: 08/26/16 00:59> - LABORATORY CBC & Chemistry Diagram: 08/26/16 00:25 08/26/16 03:13 - ADDITIONAL ORDERS Additional order review: Laboratory Results 08/26/16 08/26/16 08/26/16 02:00 01:20 00:25 Puncture Site Left brachial ABG pH 7.38 ABG pCO2 at Pt Temp 45.1 H ABG pO2 at Pt Temp 71.4 L ABG HCO3 25.9 ABG O2 Sat (Measured) 94.1 ABG O2 Content 15.2 ABG Base Excess 0.9 Artie Test Positive Oxygen Flow Rate Room air PEEP 0.0 Sodium Potassium Chloride Carbon Dioxide Anion Gap BUN Creatinine Creat Clearance w eGFR Random Glucose Calcium Total Bilirubin AST ALT Alkaline Phosphatase Creatine Kinase Troponin I Total Protein Albumin Urine Color Straw Urine Appearance Clear Urine pH 5.0 Urine Protein Negative Urine Glucose (UA) 3+ H Urine Ketones Negative Urine Blood 1+ H Urine Nitrite Negative Urine Bilirubin Negative Urine Urobilinogen Negative Ur Leukocyte Esterase 2+ H Urine RBC 26 Urine WBC 24 Ur Epithelial Cells Rare Urine Bacteria Few Urine Mucus Rare Acetone, Qual Negative L 08/26/16 00:25 Puncture Site ABG pH ABG pCO2 at Pt Temp ABG pO2 at Pt Temp ABG HCO3 ABG O2 Sat (Measured) ABG O2 Content ABG Base Excess Artie Test Oxygen Flow Rate PEEP Sodium 128 L D Potassium 3.7 Chloride 87 L D Carbon Dioxide 24 Anion Gap 17 H BUN 15 Creatinine 1.8 H D Creat Clearance w eGFR 28.70 Random Glucose 978 H* D Calcium 9.8 Total Bilirubin 0.6 D AST 30 D ALT 49 D Alkaline Phosphatase 111 D Creatine Kinase 60 Troponin I < 0.02 Total Protein 7.1 Albumin 3.7 Urine Color Urine Appearance Urine pH Urine Protein Urine Glucose (UA) Urine Ketones Urine Blood Urine Nitrite Urine Bilirubin Urine Urobilinogen Ur Leukocyte Esterase Urine RBC Urine WBC Ur Epithelial Cells Urine Bacteria Urine Mucus Acetone, Qual 08/26/16 00:25 RBC 4.64 MCV 84.3 MCHC 32.7 RDW 13.3 MPV 10.0 Neutrophils % 61.8 D Lymphocytes % 27.5 D Monocytes % 8.0 Eosinophils % 2.0 Basophils % 0.7 - Medications Given in the ED: ED Medications Discontinued Medications Generic Name Dose Route Start Last Admin Trade Name Freq PRN Reason Stop Dose Admin Sodium Chloride 1,000 mls @ 1,000 mls/hr 08/26/16 01:36 08/26/16 00:25 Normal Saline - IV 08/26/16 02:35 1,000 mls/hr ASDIR STA Administration Sodium Chloride 1,000 mls @ 1,000 mls/hr 08/26/16 01:36 08/26/16 01:35 Normal Saline - IV 08/26/16 02:35 1,000 mls/hr ASDIR STA Administration Insulin Human Regular 10 units 08/26/16 01:43 08/26/16 02:01 Novolin R Vial *For Ivpush Or Iv Drip Only* SQ 08/26/16 01:44 10 units ONCE ONE Administration <Keely Bhatti - Last Filed: 08/26/16 04:33> - LABORATORY CBC & Chemistry Diagram: 08/27/16 07:45 08/27/16 07:45 - ADDITIONAL ORDERS Additional order review: 08/26/16 00:25 RBC 4.64 MCV 84.3 MCHC 32.7 RDW 13.3 MPV 10.0 Neutrophils % 61.8 D Lymphocytes % 27.5 D Monocytes % 8.0 Eosinophils % 2.0 Basophils % 0.7 <Elvie Kevin - Last Filed: 08/27/16 21:28> Medical Decision Making - Medical Decision Making 08/26/16 03:10 I received pt on signout; EKG shows inferolateral ischemia. Inferior flipped T waves are new. compared to EKG from Mar. Lateral flipped T waves are old. 08/26/16 04:34 Pt's BMP is improving. Now with blood glc of 500+, and anion gap of 12; she also has a normal pH 7.38; so no acidosis. Pt is stable for admission to med surg. Will be admitted to the hospitalist <Keely Bhatti - Last Filed: 08/26/16 04:33> *DC/Admit/Observation/Transfer - Attestations Scribe Attestion: 08/26/16 00:55 Documentation prepared by Jenna Snider, acting as medical center director for Elvie Kevin MD. <Jenna Snider - Last Filed: 08/26/16 00:59> - Discharge Dispostion Admit: Yes <Keely Bhatti - Last Filed: 08/26/16 04:33> <Elvie Kevin - Last Filed: 08/27/16 21:28> Diagnosis at time of Disposition: Diabetes, Hyperosmolar syndrome - Discharge Dispostion Disposition: HOME Condition at time of disposition: Stable - Prescriptions - Referrals
[2016-08-26 01:08] LABS: ALBUMIN 3.7 g/dl (3.4-5.0); ANION GAP 17 (8-16); BILIRUBIN,TOTAL 0.6 mg/dL (0.2-1.0); CALCIUM 9.8 mg/dL (8.5-10.1); CO2 24 mmol/L (21-32); CREATININE 1.8 mg/dL (0.55-1.02); SGOT/AST 30 U/L (15-37); SGPT/ALT 49 U/L (12-78); TOT PROT 7.1 g/dl (6.4-8.2)
[2016-08-26 01:10] LABS: ALK PHOS 111 U/L (45-117); TROPONIN I < 0.02 ng/ml (0.00-0.05)
[2016-08-26 01:12] LABS: GLUCOSE,RANDOM 978 mg/dL (74-106)
[2016-08-26 01:28] LABS: URINE APPEARANCE CLEAR; URINE BILIRUBIN NEGATIVE (NEGATIVE); URINE COLOR STRAW; URINE GLUCOSE (UA) 3+ (NEGATIVE); URINE KETONE NEGATIVE (NEGATIVE); URINE NITRITE NEGATIVE (NEGATIVE); URINE PROTEIN NEGATIVE (NEGATIVE); URINE UROBILINOGEN NEGATIVE E.U./dl (0.2-1.0)
[2016-08-26 01:31] LABS: URINE BLOOD 1+ (NEGATIVE); URINE LEUK ESTERASE 2+ (NEGATIVE)
[2016-08-26 01:34] LABS: URINE BACTERIA FEW /hpf (NONE SEEN); URINE MUCUS RARE; URINE RBC 26 /hpf (0-3); URINE WBC 24 /hpf (3-5)
[2016-08-26] MEDS ORDERED: SODIUM CHLORIDE 1,000 ML IV STA ×2 (01:36)
[2016-08-26] MEDS ORDERED: INSULIN REGULAR HUMAN 100 UNITS/ML *VIAL SQ ONE (01:43)
[2016-08-26] MEDS ORDERED: INSULIN REGULAR HUMAN 100 UNITS/ML *VIAL ONE ×2 (01:58→09:52)
[2016-08-26 02:09] LABS: ARTERIAL BLD GAS O2 SATURATION 94.1 % (90-98.9); ARTERIAL BLOOD GAS BASE EXCESS 0.9 meq/l (-2-2); ARTERIAL BLOOD GAS HCO3 25.9 meq/L (22-26); ARTERIAL BLOOD GAS PO2 71.4 mmHg (80-100); ARTERIAL BLOOD GAS pH 7.38 (7.35-7.45)
[2016-08-26 02:10] LABS: ALLENS TEST POSITIVE; ART PUNCT SITE LEFT BRACHIAL; LPM/O2% ROOM AIR; PT. ON O2? NO
[2016-08-26] MEDS ORDERED: LEVOFLOXACIN 500 MG IVPB 100 ML IVPB ONE ×2 (02:14→02:45)
--- NOTE | 2016-08-26 02:20 | PN ---
<Roxanna Kenyon - Last Filed: 08/26/16 02:20> Teaching Attending Note Name of Resident: Antonia Whitfield ATTENDING PHYSICIAN STATEMENT I saw and evaluated the patient. I reviewed the resident's note and discussed the case with the resident. I agree with the resident's findings and plan as documented. SUBJECTIVE: OBJECTIVE: ASSESSMENT AND PLAN: <Frantz Artis - Last Filed: 08/26/16 04:16> Teaching Attending Note ATTENDING PHYSICIAN STATEMENT I saw and evaluated the patient. I reviewed the resident's note and discussed the case with the resident. I agree with the resident's findings and plan as documented. SUBJECTIVE: The patient is a 61 year old female with a significant past medical history of DM, HTN, CAD, MT s/p stent, and hypothyroidism, who presented to the emergency department today for further evaluation of high blood sugar with associated weakness and increased urinary frequency. Patient denied nausea, vomiting and diarrhea. OBJECTIVE: Last Vital Signs 3 Temp Pulse Resp BP Pulse Ox 97.9 F 84 16 153/87 95 08/26/16 01:24 08/26/16 01:24 08/26/16 01:24 08/26/16 01:24 08/26/16 01:24 Physical Exam: GEN: NAD HEENT: (+) NCAT, PERRL Dry mucous membrane white patches on tongue CARD: RRR, S1 S2 RESP: CTAB ABD: NT, BWS x4 EXT: - CCE Labs: CBCD 3 WBC 4.0 K/mm3 (4.0-10.0) 08/26/16 00:25 RBC 4.64 M/mm3 (3.60-5.2) 08/26/16 00:25 Hgb 12.8 GM/dL (10.7-15.3) 08/26/16 00:25 Hct 39.1 % (32.4-45.2) 08/26/16 00:25 MCV 84.3 fl (80-96) 08/26/16 00:25 MCHC 32.7 g/dl (32.0-36.0) 08/26/16 00:25 RDW 13.3 % (11.6-15.6) 08/26/16 00:25 Plt Count 277 K/MM3 (134-434) 08/26/16 00:25 MPV 10.0 fl (7.5-11.1) 08/26/16 00:25 CMP 3 Sodium 128 mmol/L (136-145) L D 08/26/16 00:25 Potassium 3.7 mmol/L (3.5-5.1) 08/26/16 00:25 Chloride 87 mmol/L (98-107) L D 08/26/16 00:25 Carbon Dioxide 24 mmol/L (21-32) 08/26/16 00:25 Anion Gap 17 (8-16) H 08/26/16 00:25 BUN 15 mg/dL (7-18) 08/26/16 00:25 Creatinine 1.8 mg/dL (0.55-1.02) H D 08/26/16 00:25 Creat Clearance w eGFR 28.70 (>60) 08/26/16 00:25 Calcium 9.8 mg/dL (8.5-10.1) 08/26/16 00:25 Total Bilirubin 0.6 mg/dL (0.2-1.0) D 08/26/16 00:25 AST 30 U/L (15-37) D 08/26/16 00:25 ALT 49 U/L (12-78) D 08/26/16 00:25 Alkaline Phosphatase 111 U/L (45-117) D 08/26/16 00:25 Total Protein 7.1 g/dl (6.4-8.2) 08/26/16 00:25 Albumin 3.7 g/dl (3.4-5.0) 08/26/16 00:25 Imaging: EXAM: Chest X-ray. Impression: ASSESSMENT AND PLAN: The patient is a 61 year old female with a significant past medical history of DM, HTN, CAD, MT s/p stent, and hypothyroidism, who presented with weakness found to have hyperglycemic hyperosmolar syndrome. 1. HHS- with mild anion gap - Check A1C - IVF aggressive - Insulin GTT - BMP Q2H - Add K to IVF - Corrected sodium 142 - When blood sugar <250 add D5 half normal - Finger sticks Q1 - NPO - Continue insulin infusion 0.1 units/kg/hr 2. UTI - U culture - Antibiotics 3. Thrush - Nystatin - Swish and swallow 4. Coronary Artery Disease - Continue home medications 5. Hypothyroidism - Continue synthroid 6. HTN - Continue hm 7. Diabetes - Hold home medications - Sliding scale Admit to med surg. Documentation prepared by Frantz Artis, acting as certified medical asst for Dr. Roxanna Kenyon MD.
--- NOTE | 2016-08-26 02:29 | HP ---
CHIEF COMPLAINT: blurry vision, high blood glucose PCP: Dr. Carvajal HISTORY OF PRESENT ILLNESS: This is 61 year old female with diabetes mellitus type II, CAD, HTN, presents to the emergency room with complaints of blurry vision, polyuria, polydypsia and high blood glucose (unreadable) by glucometer. Patient states that she has been having high blood sugars for the past month. She usually checks 2x per day and they have been over 500. Patient states that she has went to as emergency room in [place] (last visit 08/03/16) for hypergylcemia. She has not had any changes to her medication, she is on metformin and glyburide. She has not visited her primary regarding this issue. Patient also states she has been having urinary symptoms of dysuria and increased frequency as well. Patient denies fever, chills, n, v, abdominal pain, change in eating habits, or non adherence to medication. ER course notabel for glucose >900, Insulin and IV fluids started. Recent Travel: no PAST MEDICAL HISTORY: HTN, DMII, hypothyroid, HLD, CAD PAST SURGICAL HISTORY: rigth wrist surgery, cervical maxi Social History: Smokin cigs per day Alcohol:no Drugs: no Family History: Allergies dextromethorphan HBr [From Robitussin-DM] Allergy (Intermediate, Verified 00:22) Hives guaifenesin [From Robitussin-DM] Allergy (Intermediate, Verified 08/26/16 00:22) Hives HOME MEDICATIONS: Home Medications Medication Instructions Recorded Aspirin [Aspirin EC] 81 mg PO DAILY 04/08/16 Clopidogrel Bisulfate [Clopidogrel] 75 mg PO DAILY 04/08/16 Glyburide [Micronase -] 5 mg PO BID 04/08/16 Labetalol HCl [Normodyne -] 200 mg PO BID 04/08/16 Levothyroxine [Synthroid -] 25 mcg PO DAILY 04/08/16 Metformin HCl [Glucophage] 1,000 mg PO BID 04/08/16 Nifedipine ER [Procardia XL -] 90 mg PO DAILY 04/08/16 Pramipexole Dihydrochloride 0.5 mg PO BID 04/08/16 [Mirapex -] Pravastatin Sodium 10 mg PO DAILY 04/08/16 Levofloxacin [Levaquin] 750 mg PO DAILY #6 tab 04/09/16 REVIEW OF SYSTEMS CONSTITUTIONAL: Absent: fever, chills, diaphoresis, generalized weakness, malaise, loss of appetite, weight change HEENT: Positive: blurry vision Absent: rhinorrhea, nasal congestion, throat pain, throat swelling, difficulty swallowing, mouth swelling, ear pain, eye pain, visual changes CARDIOVASCULAR: Absent: chest pain, syncope, palpitations, irregular heart rate, lightheadedness , peripheral edema RESPIRATORY: Absent: cough, shortness of breath, dyspnea with exertion, orthopnea, wheezing, stridor, hemoptysis GASTROINTESTINAL: Absent: abdominal pain, abdominal distension, nausea, vomiting, diarrhea, constipation, melena, hematochezia GENITOURINARY: POsitive: dysuria, frequency Absent: , urgency, hesitancy, hematuria, flank pain, genital pain MUSCULOSKELETAL: Absent: myalgia, arthralgia, joint swelling, back pain, neck pain SKIN: Absent: rash, itching, pallor HEMATOLOGIC/IMMUNOLOGIC: Absent: easy bleeding, easy bruising, lymphadenopathy, frequent infections ENDOCRINE: Absent: unexplained weight gain, unexplained weight loss, heat intolerance, cold intolerance NEUROLOGIC: Absent: headache, focal weakness or paresthesias, dizziness, unsteady gait, seizure, mental status changes, bladder or bowel incontinence PSYCHIATRIC: Absent: anxiety, depression, suicidal or homicidal ideation, hallucinations. PHYSICAL EXAMINATION Vital Signs - 24 hr 08/26/16 08/26/16 00:23 01:24 Temperature 98.0 F 97.9 F Pulse Rate 98 H Pulse Rate [ 84 Right] Respiratory 20 16 Rate Blood Pressure 154/80 Blood Pressure 153/87 [Right Arm] O2 Sat by Pulse 97 95 Oximetry (%) GENERAL: Awake, alert, and fully oriented, in no acute distress. HEAD: Normal with no signs of trauma. EYES: Pupils equal, round and reactive to light, extraocular movements intact, sclera anicteric, conjunctiva clear. No lid lag. EARS, NOSE, THROAT:oropharynx clear without exudates. Moist mucous membranes. NECK: Normal range of motion, supple without lymphadenopathy, JVD, or masses. LUNGS: Breath sounds equal, clear to auscultation bilaterally. No wheezes, and no crackles. No accessory muscle use. HEART: Regular rate and rhythm, normal S1 and S2 without murmur, rub or gallop. ABDOMEN: Soft, nontender, not distended, normoactive bowel sounds, no guarding, no rebound, no masses. No hepatomegaly or splenomegaly. MUSCULOSKELETAL: Normal range of motion at all joints. No bony deformities or tenderness. No CVA tenderness. UPPER EXTREMITIES: 2+ pulses, warm, well-perfused. No cyanosis. No clubbing. No peripheral edema. LOWER EXTREMITIES: 2+ pulses, warm, well-perfused. No calf tenderness. No peripheral edema. NEUROLOGICAL: Cranial nerves II-XII intact. Normal speech. Normal gait. PSYCHIATRIC: Cooperative. Good eye contact. Appropriate mood and affect. SKIN: Warm, dry, normal turgor, no rashes or lesions noted, normal capillary refill. Laboratory Results - last 24 hr 08/26/16 08/26/16 08/26/16 00:25 00:25 00:25 WBC 4.0 RBC 4.64 Hgb 12.8 Hct 39.1 MCV 84.3 MCHC 32.7 RDW 13.3 Plt Count 277 MPV 10.0 Neutrophils % 61.8 D Lymphocytes % 27.5 D Monocytes % 8.0 Eosinophils % 2.0 Basophils % 0.7 Puncture Site ABG pH ABG pCO2 at Pt Temp ABG pO2 at Pt Temp ABG HCO3 ABG O2 Sat (Measured) ABG O2 Content ABG Base Excess Artie Test Oxygen Flow Rate PEEP Sodium 128 L D Potassium 3.7 Chloride 87 L D Carbon Dioxide 24 Anion Gap 17 H BUN 15 Creatinine 1.8 H D Creat Clearance w eGFR 28.70 Random Glucose 978 H* D Calcium 9.8 Total Bilirubin 0.6 D AST 30 D ALT 49 D Alkaline Phosphatase 111 D Creatine Kinase 60 Troponin I < 0.02 Total Protein 7.1 Albumin 3.7 Urine Color Urine Appearance Urine pH Urine Protein Urine Glucose (UA) Urine Ketones Urine Blood Urine Nitrite Urine Bilirubin Urine Urobilinogen Ur Leukocyte Esterase Urine RBC Urine WBC Ur Epithelial Cells Urine Bacteria Urine Mucus Acetone, Qual Negative L 08/26/16 08/26/16 01:20 02:00 WBC RBC Hgb Hct MCV MCHC RDW Plt Count MPV Neutrophils % Lymphocytes % Monocytes % Eosinophils % Basophils % Puncture Site Left brachial ABG pH 7.38 ABG pCO2 at Pt Temp 45.1 H ABG pO2 at Pt Temp 71.4 L ABG HCO3 25.9 ABG O2 Sat (Measured) 94.1 ABG O2 Content 15.2 ABG Base Excess 0.9 Artie Test Positive Oxygen Flow Rate Room air PEEP 0.0 Sodium Potassium Chloride Carbon Dioxide Anion Gap BUN Creatinine Creat Clearance w eGFR Random Glucose Calcium Total Bilirubin AST ALT Alkaline Phosphatase Creatine Kinase Troponin I Total Protein Albumin Urine Color Straw Urine Appearance Clear Urine pH 5.0 Urine Protein Negative Urine Glucose (UA) 3+ H Urine Ketones Negative Urine Blood 1+ H Urine Nitrite Negative Urine Bilirubin Negative Urine Urobilinogen Negative Ur Leukocyte Esterase 2+ H Urine RBC 26 Urine WBC 24 Ur Epithelial Cells Rare Urine Bacteria Few Urine Mucus Rare Acetone, Qual ASSESSMENT/PLAN: This is a 61 year old female with a PMHx of DM II, HTN, HLD, hypothyroid, CAD, presents tot he ER with blurry vision, polyuria, polydypsia, blood sugar in the emergency room >900. #hyperglycemia secondary to hypergylcemic hyperosmolar syndrome with mild anion gap -NS 150mls/hr IVF -insulin gtt -bmp q2h (electrolytes, BUN, Cr) -when serum glucose reaches 200-300mg/dl change to 5%dextrose with 0.45% NaCL @ 150mls/hr -when serum glucose reaches 200-300 you can change drip to 0.05U/kg/hr for two hrs and until gap closes -add k to each liter of fluid if K <5.3 -npo #hyponatremia secondary to hyperglycemia -corrected Na 142 #acute kidney injury most likely secondary to volume contraction -IVF, rudi BUN/ cr; if not improving renal work up with urine electrolytes #Urinary tract infection: -UA +; f/u Urine cx -ceftriaxone #CAD: -asa 81mg daily -clopidogrel 75 mg qd -statin -labetalol #hypothyroid -levothyroxine cont #Diabetes Mellitus II -hold home meds -hemoglobin a1C #HTN: -cont labetalol 200mg /nifedepine FEN: Fluids: 150mls/hr NS Electrolytes: q2h Diet : npo VTE: prophylaxis heparin sq Disposition: med surg; monitor bmp for gap closure Problem List - Problem (1) Hyperosmolar syndrome Code(s): E87.0 - HYPEROSMOLALITY AND HYPERNATREMIA (2) Diabetes Code(s): E11.9 - TYPE 2 DIABETES MELLITUS WITHOUT COMPLICATIONS (3) Hypertension Code(s): I10 - ESSENTIAL (PRIMARY) HYPERTENSION (4) Hypothyroid Code(s): E03.9 - HYPOTHYROIDISM, UNSPECIFIED (5) LONNIE (acute kidney injury) Code(s): N17.9 - ACUTE KIDNEY FAILURE, UNSPECIFIED Visit type - Emergency Visit Emergency Visit: Yes Care time: The patient presented to the Emergency Department on the above date and was hospitalized for further evaluation of their emergent condition. - New Patient This patient is new to me today: Yes Date on this admission: 08/26/16 - Critical Care Critical Care patient: No
[2016-08-26 03:39] LABS: CALCIUM 9.2 mg/dL (8.5-10.1); COCKROFT - GAULT 48.9515; CREATININE 1.4 mg/dL (0.55-1.02)
[2016-08-26] MEDS: SODIUM CHLORIDE 1,000 ML with POTASSIUM CHLORIDE 20 MEQ IVPB SCH (04:56)
[2016-08-26] MEDS ORDERED: HEPARIN NA (PORCINE) 5,000 UNITS/ML 1ML VIAL ONE (06:09)
[2016-08-26] MEDS: HEPARIN NA (PORCINE) 5,000 UNITS/ML 1ML VIAL SQ SCH ×3 (06:20→21:21)
[2016-08-26 06:54] LABS: CALCIUM 9.7 mg/dL (8.5-10.1); COCKROFT - GAULT 62.305; CREATININE 1.1 mg/dL (0.55-1.02)
[2016-08-26] MEDS: NYSTATIN 500,000 UNITS/5 ML SUSPENSION PO SCH ×3 (08:00→18:18)
[2016-08-26 09:48] LABS: CALCIUM 9.3 mg/dL (8.5-10.1)
[2016-08-26] MEDS: INSULIN SLIDING SCALE (NOVOLOG) 1 VIAL SQ SCH ×4 (09:49→21:21)
[2016-08-26 09:50] LABS: COCKROFT - GAULT 62.305; CREATININE 1.1 mg/dL (0.55-1.02)
[2016-08-26] MEDS ORDERED: CEFTRIAXONE 1,000 MG in DEXTROSE 5%-WATER - 50 ML IVPB SCH (10:00)
[2016-08-26] MEDS ORDERED: CEFTRIAXONE 250 MG in DEXTROSE 5%-WATER - 50 ML IVPB SCH (10:00)
[2016-08-26] MEDS ORDERED: CEFTRIAXONE 50 ML ONE (11:34)
--- NOTE | 2016-08-26 11:43 | EKG ---
Test Reason : Blood Pressure : / mmHG Vent. Rate : 076 BPM Atrial Rate : 076 BPM P-R Int : 154 ms QRS Dur : 102 ms QT Int : 378 ms P-R-T Axes : 065 011 -27 degrees QTc Int : 425 ms NORMAL SINUS RHYTHM T WAVE ABNORMALITY, CONSIDER INFEROLATERAL ISCHEMIA ABNORMAL ECG WHEN COMPARED WITH ECG OF 08-APR-2016 17:14, T WAVE VARIATION Confirmed by TEJAS YOUNG MD ([id number]) on 08/26/2016 11:42:46 AM Referred By: Confirmed By:TEJAS YOUNG MD
[2016-08-26] MEDS: cefTRIAXone 1 GM/50 ML BAG (PRE-DOCKED) IVPB SCH (11:46)
[2016-08-26] MEDS ORDERED: FLUCONAZOLE 50 MG TABLET PO SCH (12:00)
[2016-08-26] MEDS ORDERED: FLUCONAZOLE 100 MG TABLET (UD) ONE (12:41)
--- NOTE | 2016-08-26 13:55 | PN ---
Physical Exam: SUBJECTIVE: Patient seen and examined by me at bedside. Patient reports she is feeling much better but complains of vaginal itching and discharge. She also reports feeling hungry and not as thirsty as yesterday. Otherwise, patient denies fever, chills, nausea, vomiting, abdominal pain, chest pain, shortness of breath. OBJECTIVE: Vital Signs Period Temp Pulse Resp BP Sys/Oliver Pulse Ox Last 24 Hr 98.2 F 78 18 126/75 100 GENERAL: The patient is awake, alert, and fully oriented, in no acute distress. EYES: Sclera anicteric, conjunctiva clear. ENT: Oropharynx clear without exudates, moist mucous membranes. LUNGS: Breath sounds equal, clear to auscultation bilaterally, no wheezes, no crackles, no accessory muscle use. HEART: Regular rate and rhythm, S1, S2 without murmur, rub or gallop. ABDOMEN: Soft, nontender, nondistended, normoactive bowel sounds, no guarding, no rebound, no hepatosplenomegaly. EXTREMITIES: No peripheral edema. Laboratory Results - last 24 hr 08/26/16 08/26/16 08/26/16 06:20 09:14 09:14 Sodium 142 140 Potassium 3.4 L 3.6 Chloride 103 101 Carbon Dioxide 28 30 Anion Gap 11 9 BUN 13 13 Creatinine 1.1 H D 1.1 H POC Glucometer Random Glucose 217 H D 305 H* D Hemoglobin A1c % 13.1 H Calcium 9.7 9.3 08/26/16 08/26/16 09:25 12:47 Sodium Potassium Chloride Carbon Dioxide Anion Gap BUN Creatinine POC Glucometer [phone] Random Glucose Hemoglobin A1c % Calcium Active Medications Generic Name Dose Route Start Last Admin Trade Name Freq PRN Reason Stop Dose Admin Ceftriaxone Sodium 1 gm 08/26/16 10:00 08/26/16 11:46 Rocephin 1gm Ivpb (Pre-Docked) IVPB 1 gm DAILY JERO Administration Fluconazole 150 mg 08/26/16 12:00 08/26/16 12:48 Diflucan - PO 150 mg Q72H JERO Administration Heparin Sodium (Porcine) 5,000 unit 08/26/16 06:00 08/26/16 06:20 Heparin - SQ 5,000 unit TID JERO Administration Potassium Chloride 20 meq/ 1,010 mls @ 150 mls/hr 08/26/16 04:15 08/26/16 04:56 Sodium Chloride IVPB 08/28/16 10:58 150 mls/hr ASDIR JERO Administration Insulin Aspart 1 vial 08/26/16 07:00 08/26/16 13:07 Novolog Vial Sliding Scale - SQ 4 units ACHS JERO Administration Protocol Nystatin 500,000 units 08/26/16 06:00 08/26/16 12:31 Nystatin Oral Suspension - PO 500,000 units Q6HPO JERO Administration ASSESSMENT/PLAN: Patient is a 61 year old female with a PMHx of NIDDMII, HTN, HLD, CAD, and Hypothyroidism who presented for polyuria, polydipsia, and blurry vision. Patient was found to have a glucose level >900 with an anion gap. Patient admitted for further monitoring and management. Hyperglycemic Hyperosmolar Nonketotic State-Resolving -Initial glucose >900. -Anion gap of 17 -Insulin drip started and required only 10 units before gap closed -Continu with IV NS @150mls/hr with KCl -A1C >13% -Will likely require Insulin upon discharge -Continue BMP checks. Next one at 1400. Hyponatremia secondary to Hyperglycemia- Resolved -Corrected Na now 143 -Continue NS @125mls/hr -Continue to monitor BMP LONNIE likely secondary to dehydration and volume depletion- Resolved -Creatinine now 1.1 -Will continue IV NS@125mls/hr Urinary Tract Infection -U/A revealed 2+ LE -Continue Ceftriaxone 1gm daily day #1 Candidal Vulvovaginitis -Fluconazole 150mg Q72H x2 doses CAD -Continue ASA 81mg daily -Continue Clopidogrel 75 mg qd -Continue Atorvastatin 10mg daily Hypothyroid -Continue levothyroxine 25mcg daily HTN -Continue labetalol 200mg daily -Continue nifedepine 90mg daily F/E/N -IV NS @150mls/hr -Electrolytes wnl -Diabetic controlled diet Prophylaxis -Heparin 5000 units TID for DVT Disposition -Will observe for 24 hours and monitor the use of insulin Visit type - Emergency Visit Emergency Visit: Yes ED Registration Date: 08/26/16 Care time: The patient presented to the Emergency Department on the above date and was hospitalized for further evaluation of their emergent condition. - New Patient This patient is new to me today: Yes Date on this admission: 08/26/16 - Critical Care Critical Care patient: No
--- NOTE | 2016-08-26 15:47 | PN ---
Teaching Attending Note Name of Resident: Celia Cee ATTENDING PHYSICIAN STATEMENT I saw and evaluated the patient. I reviewed the resident's note and discussed the case with the resident. I agree with the resident's findings and plan as documented. SUBJECTIVE:c/o vaginal pruritis and discharge for a month now. states she has not seen a doctor for several months now due to recent move out of the state. Currently residing in [place]. for the past month her sugars on glucometer >500. + polyuria, polydispsia. she was prompted to come to the ER when she developed blurred vision for 2-3 days. currently all these symptoms resolved and feels well despite vaginal symptoms. denies CP, SOB,fever, chills, N/V/C/D OBJECTIVE: Last Vital Signs Temp Pulse Resp BP Pulse Ox 98.2 F 78 18 126/75 100 08/26/16 06:31 08/26/16 06:31 08/26/16 06:31 08/26/16 06:31 08/26/16 06:31 General NAD CV S1 S2 RRR no murmur/rub/gallop Lungs CTA B/L no wheezing/rales/rhonchi Abdomen soft + suprapubic tenderness ND no CVA tenderness obese Genital +copious white cottage cheese like discharge, ASSESSMENT AND PLAN: 61yo F with PMH DM, HTN, CAD s/p stent, and hypothyroid presented to the ER with polyuria/polydipsia and blurred vision 1. HONK- likely due to non-complaince. on admission glucose 978. received insulin 10 units and now improved 215. tolerating diet. A1c 13.1 (last year A1c 7.3) will now require insulin on discharge. will start levemir 15 units tonight , iss, adjust insulin as needed to optimize sugars. stressed importance of medication compliance and risks. diabetic teaching 2. UTI- starte on ceftriaxone day 1. f/u cx 3. Vaginal candidasis- fluconazole 150mg q72H x2 doses 4. LONNIE- due to dehydration. resolved. d/c ivf 5. hypokalemia- resolved 6. psedudohyponatremia- corrected Na 149 7. CAD s/p stents- no signs of ACS. cont asa/plavix 8. hypothyroid- has hx of noncompliance. check tsh. check lt4 9. DVT ppx- hep sq
[2016-08-26 16:03] LABS: CALCIUM 9.6 mg/dL (8.5-10.1); COCKROFT - GAULT 62.305; CREATININE 1.1 mg/dL (0.55-1.02)
[2016-08-26 18:57] VITALS: BMI 26.9
[2016-08-26] MEDS: LABETALOL HCL 200 MG TABLET (FP) PO SCH (21:23)
[2016-08-26] MEDS ORDERED: INSULIN DETEMIR 100 UNITS/ML MDV SQ SCH (22:00)
[2016-08-26] MEDS: PRAMIPEXOLE DIHYDROCHLORIDE 0.5 MG TABLET PO SCH (22:25)
[2016-08-27] MEDS: SODIUM CHLORIDE 1,000 ML with POTASSIUM CHLORIDE 20 MEQ IVPB SCH ×2 (02:00→08:43)
[2016-08-27] MEDS: NYSTATIN 500,000 UNITS/5 ML SUSPENSION PO SCH ×4 (02:30→17:34)
[2016-08-27] MEDS: HEPARIN NA (PORCINE) 5,000 UNITS/ML 1ML VIAL SQ SCH ×2 (06:20→14:34)
[2016-08-27] MEDS: INSULIN SLIDING SCALE (NOVOLOG) 1 VIAL SQ SCH ×3 (06:21→17:35)
[2016-08-27] MEDS ORDERED: LEVOTHYROXINE NA 25 MCG TABLET (FP) PO SCH (07:00)
[2016-08-27 08:01] LABS: MCH 27.9 pg (25.7-33.7); MCHC 33.9 g/dl (32.0-36.0); MEAN CELL VOLUME 82.1 fl (80-96); MEAN PLT VOLUME 9.2 fl (7.5-11.1); PLATELET COUNT 231 K/MM3 (134-434); RDW 13.1 % (11.6-15.6)
[2016-08-27 08:25] LABS: CALCIUM 8.5 mg/dL (8.5-10.1); COCKROFT - GAULT 74.8425; CREATININE 0.9 mg/dL (0.55-1.02)
[2016-08-27 08:32] LABS: THYROID STIMULATING HORMONE 0.81 uIU/ml (0.358-3.74)
[2016-08-27] MEDS ORDERED: NIFEdipine E.R. 90 MG TABLET (FP) PO SCH (10:00)
[2016-08-27] MEDS ORDERED: ASPIRIN COATED 81 MG TABLET.EC PO SCH (10:00)
[2016-08-27] MEDS ORDERED: CLOPIDOGREL BISULFATE 75 MG TABLET (FP) PO SCH (10:00)
[2016-08-27] MEDS ORDERED: PT OWN MED DRAWER 7, Y5N ONE (10:09)
[2016-08-27] MEDS: LABETALOL HCL 200 MG TABLET (FP) PO SCH (10:13)
[2016-08-27] MEDS: PRAMIPEXOLE DIHYDROCHLORIDE 0.5 MG TABLET PO SCH (10:13)
[2016-08-27] MEDS: cefTRIAXone 1 GM/50 ML BAG (PRE-DOCKED) IVPB SCH (10:13)
[2016-08-27] MEDS ORDERED: INSULIN (NOVOLOG) ASPART 100 UNITS/ML 10ML VIAL ONE ×2 (11:32→18:16)
[2016-08-27 15:11] VITALS: TEMP 98
--- NOTE | 2016-08-27 15:32 | PN ---
Teaching Attending Note Name of Resident: Celia Cee ATTENDING PHYSICIAN STATEMENT I saw and evaluated the patient. I reviewed the resident's note and discussed the case with the resident. I agree with the resident's findings and plan as documented. SUBJECTIVE: No complaints. OBJECTIVE: Vital Signs Period Temp Pulse Resp BP Sys/Oliver Pulse Ox Last 24 Hr 97.8 F-98.6 F 64-78 16-20 129-158/69-91 95-100 HEART: S1 S2, RRR LUNGS: Clear ABDOMEN: Soft, non-tender, non-distended, normal BS EXTREMITIES: No edema ASSESSMENT AND PLAN: This is a 61 year old woman with a history of DM, HTN, CAD, stents, hypothyroidism who presented to the ER with polyuria, polydipsia and blurred vision. 1. Hyperosmolar hyperglycemic nonketotic state - Resolved 2. Uncontrolled DM - Continue Levemir, Novolog sliding scale 3. UTI - On Rocephin - Discharge on Keflex 4. Vaginal candidiasis - s/p Diflucan 5. Acute kidney injury secondary to dehydration - Resolved 6. Hypokalemia - Resolved 7. Hyponatremia secondary to hyperglycemia - Resolved 8. CAD, history of stents - Continue aspirin, Plavix, Lipitor 9. Hypertension - Continue Labetalol, Procardia XL 10. Hypothyroidism - Continue Synthroid 11. Ok for discharge
[2016-08-27 19:38] VITALS: BP 121/80; PULSE 80
[2016-08-27] MEDS ORDERED: ATORVASTATIN CA 10 MG TABLET (FP) PO SCH (22:00)
--- NOTE | 2016-08-27 23:28 | DS ---
Physical Exam: SUBJECTIVE: Patient seen and examined by me at bedside. No overnight events noted. Patient states she is feeling much better. She still complains of vaginal discharge and itching. Otherwise, patient denies fever, chills, nausea , vomiting, abdominal pain, chest pain, palpitations, shortness of breath, dizziness, headaches. OBJECTIVE: Vital Signs Period Temp Pulse Resp BP Sys/Oliver Pulse Ox Last 24 Hr 97.8 F-98.6 F 64-80 16-20 121-156/74-91 96 PHYSICAL EXAM GENERAL: The patient is awake, alert, and fully oriented, in no acute distress. LUNGS: Breath sounds equal, clear to auscultation bilaterally, no wheezes, no crackles, no accessory muscle use. HEART: Regular rate and rhythm, normal S1 and S2 without murmur, rub or gallop. ABDOMEN: Soft, nontender, nondistended, normoactive bowel sounds, no guarding, no rebound, no hepatosplenomegaly. EXTREMITIES: No peripheral edema. LABS Laboratory Results - last 24 hr 08/27/16 08/27/16 08/27/16 06:04 07:45 07:45 WBC 5.0 RBC 4.02 Hgb 11.2 D Hct 33.0 D MCV 82.1 MCHC 33.9 RDW 13.1 Plt Count 231 MPV 9.2 Sodium 143 Potassium 3.6 Chloride 107 Carbon Dioxide 27 Anion Gap 9 BUN 13 Creatinine 0.9 POC Glucometer 177 Random Glucose 185 H D Calcium 8.5 TSH 0.81 08/27/16 08/27/16 11:37 17:27 WBC RBC Hgb Hct MCV MCHC RDW Plt Count MPV Sodium Potassium Chloride Carbon Dioxide Anion Gap BUN Creatinine POC Glucometer 311 350 Random Glucose Calcium TSH HOSPITAL COURSE: Patient is a 61 year old female with a PMHx of NIDDMII, HTN, HLD, CAD, and Hypothyroidism who presented for polyuria, polydipsia, and blurry vision. Patient was found to have a glucose level >900 with an anion gap. Patient admitted for Hyperglycemic Hyperosmolar Nonketotic State. Patient was placed on an Insulin drip and required only 10 units of insulin for the gap to close. Patient then switched to Insulin Sliding Scale and Levemir. Patient's A1C returned and was found to have a level >13%. Contacted PCP who reports patient is noncompliant with her medications and that the last level last year was 7.2% . Patient will likely require insulin. Patient was also found to have hyponatremia and LONNIE which was resolved the next day with IV normal Saline. Patient was also found to have a UTI as well as white thick vaginal discharge. Patient was treated for UTI and Candidal Vulvovaginitis. Patient was stable and was able to tolerate solid foods and PO medications. Patient was placed on Levemir 15 units before bed and responded well the next morning. Patient was prescribed Levemir pen, Novolog pen and 5 more days of antibiotics for UTI, as well as one more dose of Fluconazole. Counseling was offered to patient for diet and lifestyle changes as well as the use of insulin. Patient verbalized understanding. Patient was stable for discharge and provided transportation to go home. Date of Admission:08/26/16 Date of Discharge: 08/27/16 Minutes to complete discharge: 45 Discharge Summary Reason For Visit: URINARY INFECTDIABETES HYPEROSMOLAR SYNDROME Condition: Stable - Instructions Diet, Activity, Other Instructions: -You were admitted for dangerous levels of sugar, which caused you to have kidney injury acutely. You were also admitted for a urinary tract infection ( UTI). -A packet will be sent with you about nutrition and diet. It is very important you maintain a healthy diet and exercise. -You will also be prescribed a Glucometer with strips to check your sugars three times a day. Document your sugars and the amount the insulin you take three times a day. Bring this log with you to your next doctors appointment. You will also take long acting insulin (levemir) 15 units every night before going to bed. You will also be sent home with an insulin sliding scale pen. Please follow up with your primary care doctor within 1-2 weeks for adjustment. You can find the scale below. -You will also be prescribed antibiotics for your UTI. You will take it for 5 more days. -You will also be sent with a medication called Fluconazole. You only need to take one pill on (08/29/16). -You may resume your daily activities and a diabetic friendly diet. -Please follow up with a primary care doctor within a week. -If any symptoms occur and worse, return to the emergency department. Insulin Sliding Scale Instruction: Blood Sugar Level Dose to administer in Units <200 0 201-250 2 251-300 4 301-350 6 351-400 8 >400 10 Referrals: Arianna Carvajal MD [Primary Care Provider] - Disposition: HOME - Home Medications Comprehensive Discharge Medication List: Ambulatory Orders Aspirin [Aspirin EC] 81 mg PO DAILY 04/08/16 Clopidogrel Bisulfate [Clopidogrel] 75 mg PO DAILY 04/08/16 Labetalol HCl [Normodyne -] 200 mg PO BID 04/08/16 Levothyroxine [Synthroid -] 25 mcg PO DAILY 04/08/16 Nifedipine ER [Procardia XL -] 90 mg PO DAILY 04/08/16 Pramipexole Dihydrochloride [Mirapex -] 0.5 mg PO BID 04/08/16 Pravastatin Sodium 10 mg PO DAILY 04/08/16 Cephalexin [Keflex] 500 mg PO BID #10 capsule 08/27/16 Fluconazole 150 mg PO ONCE #1 tablet 08/27/16 Insulin (Levemir) [Levemir Flexpen -] 15 units SQ HS #1 pen 08/27/16 Insulin Aspart [Novolog Flexpen] 100 unit SQ TIDCM #1 insuln.pen 08/27/16 Miscellaneous Medical Supply [Glucometer Device] 1 each .ROUTE ASDIR #1 kit 09/07 Miscellaneous Medical Supply [Glucometer Test Strips #100] 1 each .ROUTE ASDIR # 1 box 08/27/16 This patient is new to me today: No Emergency Visit: Yes ED Registration Date: 08/26/16 Care time: The patient presented to the Emergency Department on the above date and was hospitalized for further evaluation of their emergent condition. Critical Care patient: No - Discharge Referral Referred to [facility] Med P.C.: No
== END 2016-08-27 18:40 | disposition home or self-care (01) | DRG 420 ==
LOC: JER 00:09 → JERBED 03:46 → UNDOADMIN 04:00 → J5S 17:08
PROVIDERS: ADMIT Internal Medicine; ATTEND Internal Medicine
DX: E11.00 Type 2 diabetes mellitus with hyperosmolarity without nonketotic hyperglycemic-hyperosmolar coma (NKHHC) (principal); N39.0 Urinary tract infection, site not specified; N17.9 Acute kidney failure, unspecified; E86.0 Dehydration; B37.3 Candidiasis of vulva and vagina; E87.6 Hypokalemia; E87.1 Hypo-osmolality and hyponatremia; I25.10 Atherosclerotic heart disease of native coronary artery without angina pectoris; Z98.61 Coronary angioplasty status; I10 Essential (primary) hypertension; E03.9 Hypothyroidism, unspecified; E78.5 Hyperlipidemia, unspecified; Z87.891 Personal history of nicotine dependence; Z91.14 Patient's other noncompliance with medication regimen
CPT/HCPCS: 36415; 36600; 71010-TC; 80048; 80053; 81003; 81015; 82009; 82550; 82803; 83036; 84443; 84484; 85025; 85027; 93005; 93010; 99285-25; J1644

== ENCOUNTER 2019-11-28 23:42 | Emergency (ER) | payer OTHER ==
[2019-11-29 00:18] VITALS: BMI 29.2
[2019-11-29] MEDS ORDERED: SODIUM CHLORIDE 0.9% 500 ML INFUS.BAG IV ONE (01:35)
--- NOTE | 2019-11-29 01:57 | PDOC ---
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 Asymptomatic in the d epartment. Discussed her concerns with her primary care doctor one week ago. At that time noted to have an elevated A1C. Denies nausea, vomiting, chest pain, abdominal pain, weakness, fatigue, or severely elevated blood sugar at home. No recent illness or infection, no fevers or chills. All: Per chart Meds: Per chart PMH: As above PSH: As above Past History - Travel History Traveled outside of the country in the last 30 days: No Close contact w/someone who was outside of country & ill: No - Medical History Allergies/Adverse Reactions: Allergies Allergy/AdvReac Type Severity Reaction Status Date / Time dextromethorphan Hbr Allergy Intermediate Hives Verified 11/29/19 00:18 [From Robitussin-DM] guaifenesin Allergy Intermediate Hives Verified 11/29/19 00:18 [From Robitussin-DM] Home Medications: Ambulatory Orders Aspirin [Aspirin EC] 81 mg PO DAILY 04/08/16 Clopidogrel Bisulfate [Clopidogrel] 75 mg PO DAILY 04/08/16 Labetalol HCl [Normodyne -] 200 mg PO BID 04/08/16 Nifedipine ER [Procardia XL -] 90 mg PO DAILY 04/08/16 Pramipexole Dihydrochloride [Mirapex -] 0.5 mg PO BID 04/08/16 Pravastatin Sodium 10 mg PO DAILY 04/08/16 Fluconazole 150 mg PO ONCE #1 tablet 08/27/16 Insulin (Levemir) [Levemir Flexpen -] 15 units SQ HS #1 pen 08/27/16 Insulin Aspart [Novolog Flexpen] 100 unit SQ TIDCM #1 insuln.pen 08/27/16 Cephalexin Monohydrate [Keflex -] 500 mg PO BID #20 capsule 08/31/17 Glecaprevir/Pibrentasvir [Mavyret 100-40 mg Tablet] 1 each PO ASDIR 08/31/17 Liraglutide [Victoza -] 0.6 mg SQ DAILY@0700 08/31/17 Lisinopril [Prinivil] 20 mg PO DAILY 08/31/17 Phenazopyridine HCl [Pyridium -] 200 mg PO PC #12 tablet 08/31/17 Anemia: No Asthma: No Cancer: No Cardiac Disorders: Yes (CAD) CVA: No COPD: No CHF: No Dementia: No Diabetes: Yes GI Disorders: No Disorders: Yes (UTI) HTN: Yes Hypercholesterolemia: Yes Liver Disease: No Seizures: No Thyroid Disease: Yes (HYPOTHYROIDISM) - Surgical History Abdominal Surgery: Yes (ECTOPIC) Appendectomy: No Cardiac Surgery: Yes (stent) Cholecystectomy: No Lung Surgery: No Neurologic Surgery: Yes (TITANIUM RODES FROM C1-C4) Orthopedic Surgery: Yes (R. wrist & neck) - Reproductive History Is Patient Now?: No - Immunization History Immunization Up to Date: Yes - Psycho-Social/Smoking History Smoking Status: Yes Smoking History: Current every day smoker Have you smoked in the past 12 months: Yes Number of Cigarettes Smoked Daily: 3 Cigars Per Day: 0 Information on smoking cessation initiated: No 'Breaking Loose' booklet given: 04/08/16 - Substance Abuse Hx (Audit-C & DAST Scrn) How often the patient has a drink containing alcohol: Never Score: In Men: 4 or > Positive; In Women: 3 or > Positive: 0 Screen Result (Pos requires Nsg. Audit-10AR): Negative In the last yr the pt used illegal drug/Rx for NonMed reason: No Score: Yes response is considered Positive: 0 Screen Result (Positive result requires Nsg. DAST-10): Negative Review of Systems - Review of Systems Able to Perform ROS?: Yes Is the patient limited Fijian proficient: Yes Constitutional: No: Chills, Fever, Weakness HEENTM: No: Recent change in vision, Nose Congestion, Throat Pain Respiratory: No: Cough, Shortness of Breath, Wheezing Cardiac (ROS): No: Chest Pain, Irregular Heart Rate, Chest Tightness ABD/GI: No: Constipated, Diarrhea, Nausea, Vomiting : No: Burning, Dysuria, Frequency Musculoskeletal: No: Back Pain, Muscle Pain, Muscle Weakness, Neck Pain Integumentary: No: Bruising, Pruritus, Rash Neurological: Yes: Numbness, Tingling. No: Headache, Weakness, Unsteady Gait Psychiatric: No: Anxiety, Depression, Stressors, Change in Appetite Endocrine: No: Increased Thirst, Increased Urine, Change in Weight Hematologic/Lymphatic: No: Anemia, Blood Clots, Easy Bleeding All Other Systems: Reviewed and Negative *Physical Exam - Vital Signs Last Vital Signs Temp Pulse Resp BP Pulse Ox 98.6 F 82 20 164/94 100 11/29/19 00:14 11/29/19 00:14 11/29/19 00:14 11/29/19 00:14 11/29/19 00:14 - Physical Exam 11/29/19 01:56 Vitals notable for HTN GEN: Well appearing, appears stated age, NAD, comfortable. AAOx3. HEENT: NCAT, EOMI, PERRL. Sclera anicteric, noninjected. No facial asymmetry. M oist mucous membranes. Normal voice. Trachea midline. CV: RRR, S1/S2, no murmurs / rubs / gallops appreciated. LUNG: CTABL, normal work of breathing. No wheezes, rales, rhonchi. No cough. Speaking full sentences. GI: Soft, NTND, +BS, no guarding, no rebound. No masses. EXTREMITIES: 2+ distal pulses. No clubbing / cyanosis / edema. No gross deformity in any extremity. SKIN: Warm, dry, no rashes appreciated, non-jaundiced. PSYCH: Normal mood and affect. Cooperative and appropriate. NEURO: CN grossly intact. Moving all extremities well. Normal strength and sensation grossly. Normal gait. 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 Asymptomatic in the department, stable, comfortable, normal neuro exam, vitals, gait. Will rule out electrolyte abnormality, anemia, endocrine / metabolic process, intracranial mass / bleed. - CBC, CMP, Cardiac Profile, Beta-hydroxybutyrate, VBG - NCHCT - 1L IVF 11/29/19 04:53 - Labs unremarkable - CT without bleed or mass lesion Dispo: Home Discharge - Discharge Information Problems reviewed: Yes Clinical Impression/Diagnosis: Numbness and tingling in both hands Condition: Good Disposition: HOME - Admission No - Follow up/Referral Referrals: Arianna Carvajal MD [Primary Care Provider] - - Patient Discharge Instructions Additional Instructions: You were seen and evaluated at [place] for numbness and tingling in your hands, heaviness in your right foot, and dizziness. A dizziness medication has been sent to your pharmacy. Follow up with your primary care doctor in the next 2-5 days for continued care. Return to the ED for any new or concerning symptoms. - Post Discharge Activity
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
[2019-11-29 02:20] LABS: BASO % 1.1 % (0-2.0); EOS % 3.8 % (0-4.5); HEMATOCRIT 35.4 % (32.4-45.2); HEMOGLOBIN 12.1 GM/dL (10.7-15.3); MCH 27.8 pg (25.7-33.7); MCHC 34.3 g/dl (32.0-36.0); MEAN CELL VOLUME 81.2 fl (80-96); MEAN PLT VOLUME 8.6 fl (7.5-11.1); MONO % 7.1 % (3.8-10.2); PLATELET COUNT 363 K/MM3 (134-434); RBC 4.37 M/mm3 (3.60-5.2); RDW 14.8 % (11.6-15.6)
[2019-11-29 02:55] LABS: ALBUMIN 3.8 g/dl (3.4-5.0); BILIRUBIN,TOTAL 0.2 mg/dL (0.2-1); BLOOD UREA NITROGEN 21.6 mg/dL (7-18); CALCIUM 9.8 mg/dL (8.5-10.1); CREATININE 1.3 mg/dL (0.55-1.3); MAGNESIUM 1.9 mg/dL (1.8-2.4); POTASSIUM 4.1 mmol/L (3.5-5.1); TOT PROT 7.8 g/dl (6.4-8.2)
[2019-11-29 04:35] VITALS: BP 164/84; PULSE 76; TEMP 97.8
--- NOTE | 2019-12-07 14:07 | EKG ---
Test Reason : Blood Pressure : / mmHG Vent. Rate : 076 BPM Atrial Rate : 076 BPM P-R Int : 162 ms QRS Dur : 092 ms QT Int : 418 ms P-R-T Axes : 064 029 062 degrees QTc Int : 470 ms SINUS RHYTHM WITH PREMATURE ATRIAL COMPLEXES SEPTAL INFARCT , AGE UNDETERMINED ABNORMAL ECG WHEN COMPARED WITH ECG OF 26-AUG-2016 02:54, PREMATURE ATRIAL COMPLEXES ARE NOW PRESENT SEPTAL INFARCT IS NOW PRESENT T WAVE INVERSION NO LONGER EVIDENT IN INFERIOR LEADS T WAVE INVERSION MORE EVIDENT IN LATERAL LEADS Confirmed by Konrad Wagner MD ([id number]) on 12/07/2019 2:07:25 PM Referred By: Confirmed By:Konrad Wagner MD
== END 2019-11-29 05:05 | disposition home or self-care (01) ==
LOC: JER 23:42
DX: R20.2 Paresthesia of skin (principal)
CPT/HCPCS: 36415; 70450-TC; 80053; 82010; 82962; 83735; 85025; 93005; 93010; 99284-25